=== PATIENT | female | born 1935 | race Asian ===

== ENCOUNTER 2017-07-20 05:08 | Inpatient (IN) | payer OTHER ==
[~2017-07-20] VITALS: Ht 149.9 cm; Wt 34.9 kg
[~2017-07-20 05:08] MED LIST: ALENDRONATE SOD70 M2 PO; AMLODIPINE BESYL5 M1 PO; BACO TOP; CALCITRIOL0.25 MCG PO; CARL PO; CIPRO500 MG PO; COL100 PO; FER300 PO; HIBICLENS118 ML TOP; IPRATROPIUM BROM3 M2 HHN; LAC PO; MEGESTROL AC40 MG/ML PO; MYL80 CH; NOR5 PO; PEP20 PO; PRI20 PO; PRO10I SQ; PROT40I IV; ROC25 PO; TYL325 PO; VITC PO; ZANTAC 150150 MG PO; ZANTAC 300300 MG PO; ZOFI IV; ZOFRAN4 MG PO
--- NOTE | 2017-07-20 05:31 | NUR ---
PT PRESENT TO THE ER TODAY FOR CHEST PAIN THAT STARTED YESTERDAY. PT STATES SHE WAS SITTING WHEN PAIN STARTED. PT STATES CHEST PAIN IS 9/10 AND DESCRIBED PRESSURE. PT DENIES ANY SOB. LUNGS CLEAR BILATERALY. RESPIRATIONS EVEN AND UNLABORED. PT DENIES ANY N/V. PT DENIES ANY OTHER SYMPTOMS. VITAL SIGNS STABLE. NO ACUTE DISTRESS NOTED. PT PLACED ON CAKE FROSTER. MSE COMPLETED BY DR. ROBIN.
--- NOTE | 2017-07-20 05:43 | NUR ---
LAB AT BEDSIDE FOR MSE.
[2017-07-20 05:58] LABS: BASOPHIL % 0.6 % (0-2); PLATELET COUNT 140 x10^3mcL (130-400); RED CELL DISTRIBUTION WIDTH 13.7 % (11.5-14.5)
--- NOTE | 2017-07-20 06:00 | NUR ---
RADIOLOGY AT BEDSIDE FOR CHEST X-RAY
[2017-07-20 06:04] LABS: CALCIUM 8.8 mg/dL (8.5-10.1); CARBON DIOXIDE 23.4 mmol/L (21-32); CHLORIDE SERUM 108 mmol/L (98-107); CREATININE SERUM 3.6 mg/dL (0.6-1.0); GLUCOSE SERUM 94 mg/dL (74-106); POTASSIUM SERUM 4.7 mmol/L (3.5-5.1); SODIUM SERUM 142 mmol/L (136-145)
[2017-07-20 06:09] LABS: ALBUMIN 4.1 g/dL (3.4-5.0); ALKALINE PHOSPHATASE 117 U/L (46-116); ALT/SGPT 36 U/L (14-59); AST/SGOT 30 U/L (15-37); BILIRUBIN TOTAL 0.34 mg/dL (0.20-1.00); LIPASE 688 IU/L (73-393); TOTAL PROTEIN, SERUM 7.8 g/dL (6.4-8.2)
[2017-07-20] MEDS ORDERED: LISINOPRIL2.5 MG PO (06:37)
[2017-07-20] MEDS ORDERED: REM15 PO (06:37)
--- NOTE | 2017-07-20 06:55 | NUR ---
PT APPEARS TO BE RESTING COMFORTABLY. PT STATES HER PAIN IS 9/10. RESPIRATIONS EVEN AND UNLABORED. VITAL SIGNS STABLE. NO ACUTE DISTRESS NOTED.
--- NOTE | 2017-07-20 07:00 | NUR ---
RECEIVED REPORT FROM INFORMATION TECHNOLOGY ADVISOR NURSE KORY. US AT BEDSIDE FOR EVALUATION.
--- NOTE | 2017-07-20 07:05 | NUR ---
REPORT CALLED TO BARB ON MED/TELE.
[2017-07-20 07:14] LABS: CHOLESTEROL/HDL RATIO 1.9; MAGNESIUM 2.5 mg/dL (1.8-2.4); PHOSPHOROUS 5.2 mg/dL (2.5-4.9)
[2017-07-20 07:23] LABS: T3 TOTAL 0.78 ng/mL
[2017-07-20 07:24] LABS: FREE T4 1.01 ng/dL (0.76-1.46); FREE THYROXINE INDEX 3.2 ug/dL (1.4-4.5); T4(THYROXINE) 9.6 ug/dL (4.7-13.3)
[2017-07-20 08:00] LABS: UA SPECIFIC GRAVITY <=1.005 (1.005-1.035); microscopic required? YES; urine erythrocyte 1+ (NEGATIVE)
--- NOTE | 2017-07-20 08:15 | NUR ---
RECEIVED PATIENT ALERT AND ORIENTED TIMES FOUR. IF ITNACT AND STARTED ON D5NS ORERED. HALLE HAS BEEN WITH PREVIOUS ADMISSION FOR PANCREATTITIS AND APPEARS SHE HAS THE SAME ISSUE WITH KIM AT 204 AND LIPASE AT 658. PATIENTHAS NTOED BLOOD AND PROTIEN IN THE URINE AND WITH H AND H OF 10.7/53. PER THE PATIENT SHE WAS A DILALYSIS PATIENT BUT THE SHUNT TO THE CHEST WAS REMOVED AND SHE HAD IMPROVEMENT ON THE KIDNEY FUNCTION SINCE THAT TIME. SHE HAS HAD ONE KIDNEY REM[facility] AND HAS HAD CATARACT SURGERY TO [facility] IN 2003. HE HAS A HISTORY OF GERD, HYPOTYROID, HTN, DEPRESSION AND ASTHMA. SHE WAS A SMOKER BUT QUIT 2 YEARS AGO. 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 [facility] RECEIVED FENTANYL, ZOFRAN, PEPCID. US OF THE GALLBLADDER AND IS NEGATIVE AT THIS TIME. WILL CONTINUE TO MONITOR AND WAS SEEN BY THE MACHINE ENGRAVER AND PLAN OF CARE DISCUSSED. PATIENT IS NPO INDICATED.
[2017-07-20 08:42] VITALS: BP 144/67
--- NOTE | 2017-07-20 09:30 | NUR ---
GAVE HER MEDICATIONS WITH WATER INDICATED.
[2017-07-20 09:50] VITALS: BP 134/67
--- NOTE | 2017-07-20 11:30 | NUR ---
VITALS AT THIS TIME AT 97.9, 144/67, 89 MAP, 97% ON ROOM AIR. AND 18 RESPIRATIONS.
--- NOTE | 2017-07-20 11:32 | NUR ---
BACK FROM CT AND AWAITING RESULTS OF SCAN AT THIS TIME. TOLERATED WELL.
[2017-07-20 12:58] VITALS: BP 116/56
--- NOTE | 2017-07-20 14:01 | NUR ---
PAGED RECREATION THERAPY TEACHER DUE TO PATIENT FREQUENT REQUEST FOR A DIET. AWAITING ANSWER AT THIS TIME. PATIENT IS HAVING A TROPONIN DRAWN AND ULTRASOUND AT THIS TIME.
--- NOTE | 2017-07-20 15:26 | NUR ---
GAVE INFLUENZA VACINE ORDERED TO THE LEFT UPPER ARM WITH A 22/ONE INCH NEEDLE. TOLERATED WELL. WILL MONITOR SITE INDICATED.
--- NOTE | 2017-07-20 16:20 | NUR ---
TOLERATED DIET OF LIQUIDS AND NO NAUSEA NOTED.
[2017-07-20 17:17] VITALS: BP 131/67
--- NOTE | 2017-07-20 17:34 | NUR ---
VALORIE DENIES CHEST PAIN AT THIS TIME. SHE HAS BEEN OOB AND AMBULATING TO AND FROM THE RESTROOM. SHE HAS BEEN SEEN BY DR WILLIAM AND SHE IN NO ACUTE DISTRESS AT THIS TIME.
--- NOTE | 2017-07-20 19:30 | NUR ---
PT ALERT/ORIENTED X4. NO C/O PAIN. TELE # 14, SR, HR; 64. PT REMAINS IN CONTACT ISOLATION. PT ASSESSED; SEE NSG FLOWSHEET. SAFETY REINFORCED; SEE EDUCAT SHEET. WILL CONTINUE TO MONITOR.
[2017-07-20 21:17] VITALS: BP 108/56
--- NOTE | 2017-07-20 22:30 | NUR ---
PT SLEEPING, AROUSES EASILY. NO C/O PAIN. WILL CONTINUE TO MONITOR.
--- NOTE | 2017-07-21 01:10 | NUR ---
PT SLEEPING. NO DISTRESS NOTED. BREATHING IS EVEN AND UNLABORED. WILL CONTINUE TO MONITOR.
--- NOTE | 2017-07-21 03:44 | NUR ---
PT AWAKE. NO C/O PAIN. WILL CONTINUE TO MONITOR.
--- NOTE | 2017-07-21 05:38 | NUR ---
PT SLEPT IN LONG INTERVALS THROUGHOUT THE NIGHT. NO DISTRESS NOTED. NO C/O PAIN. WILL CONTINUE TO MONITOR.
[2017-07-21 06:23] VITALS: BP 135/66
[2017-07-21 06:41] LABS: CARBON DIOXIDE 22.3 mmol/L (21-32); CHLORIDE SERUM 114 mmol/L (98-107); GLUCOSE SERUM 95 mg/dL (74-106); LIPASE 427 IU/L (73-393); PHOSPHOROUS 4.2 mg/dL (2.5-4.9); POTASSIUM SERUM 5.2 mmol/L (3.5-5.1); SODIUM SERUM 144 mmol/L (136-145); URIC ACID 8.7 mg/dL (2.6-6.0)
--- NOTE | 2017-07-21 07:15 | NUR ---
RECEIVED PT. IN BED A/A/O X3. NO SOB, NO N/V NOTED. DENIES ANY PAIN AT THIS TIME. D5NS RUNNING AT 75 CC/HR. VIA IV H/L AT L FA. PT. IS ON CONTACT ISOLATION (HX. MRSA NARES & ESBL E.COLI IN URINE). SCD TO BLE MAINTAINED. BED IN LOW POS., CALL LIGHT WITHIN REACH. SIDE RAILS UP X3.
[2017-07-21 07:21] LABS: BASOPHIL % 0.5 % (0-2); PLATELET COUNT 126 x10^3mcL (130-400); RED CELL DISTRIBUTION WIDTH 13.5 % (11.5-14.5)
--- NOTE | 2017-07-21 09:25 | NUR ---
DR. GASCA, THE RESIDENTS, CHARGE NURSE, AND ATTENDING NURSE AT BEDSIDE. CAREPLAN DISCUSSED WITH PT. ALL QUESTIONS ANSWERED.
[2017-07-21 09:54] VITALS: BP 145/66
[2017-07-21 13:36] VITALS: BP 127/65
[2017-07-21 14:02] LABS: IRON 57 ug/dL (50-170); TOTAL IRON BINDING CAPACITY 200 ug/dL (250-450)
--- NOTE | 2017-07-21 14:26 | NUR ---
Initial Nutrition Assessment Dx: Hyponatremia PMHx: Hypertension,Hypothyroidism,GERD ,ESRD, no longer on hemodialysis,Asthma And osteoporosis PSHx:right nephrectomy due to stones and cataract removal Labs: (07/21) K:5.2H, B, BUN:35H, Cr:3H, Ca:8L, Uric acid:8.7H, Lipase:427H, WBC:4.4L, H/H:9.4/29L (07/20) HDL:104H, Amylase:204H, Meds: Colace, D5 NS, Oscal with Vitamin D, Pepcid, Phoslo, Synthroid, Vitamin C, Zofran Diet:Clear liquid PO Intake: (07/20) D:50% (07/21) L:60% Ht: 59in, 4'11" Wt: 77#,34.927kg BMI:15.6kg/m2 (underweight) IBW: 98#,45kg %IBW: 79% UBW:77# per pt Age:81y/o female Food Allergies:NKFA Skin:intact Julio:21 Edema:None GI: active bowel sounds Last BM:07/20 Pt admitted with Acute acalculous pancreatitis and chest pain secondary to costochondritis vs GERD, rule out ACS. Per bed huddle this morning, pt is cleared by Dr. Gr and is awaiting nephrology consult. During visit observed pt laying in bed with no c/o N/V/D/C and no problems with chewing or swallowing. Pt reports to having a good appetite and has always been on the "skinnier" side. RD offered oral nutrition supplements but pt declined and said she is hungry and would probably eat 100% of her lunch. Problem with: N: No V: No D:No C:No Problems with: Chewing:pt with dentures but does not affect her chewing ability Swallowing: No Current appetite: Good Recent wt change:No %wt change:N/A Vitamin/Supplement use:Vitmain C Special diet at home:Regular Physical activity: No Education: pt declined nutrition education at this time. She was more concerned about what was going on with her medically vs. nutrionally. Estimated Nutritional Needs Based on ideal body weight 45kg Energy:6037-6049 kcal/d (30-35kcal/kg for renal non-dialysis) Protein: 27-36g/d (0.6-0.8g/kg for renal non-dialysis) Fluid: 1350-1575ml/d (1 ml/kcal) or per doctor Nutrition Diagnosis 1. Altered nutrition labs related to acute pancreatitis and ESRD as evidenced by elevated lipase: 688, Amylase:204, BUN:35 and Cr:3 Intervention 1. Recommend continue with clear liquid diet per doctor. 2. Recommend advance diet as tolerated to low phosphorus 40g protein diet to to ESRD not on HD. Monitor/Evaluate Goal: PO intake at least 75% of estimated needs and diet advancement Monitor: PO intake diet advancement,, Labs, GI function F/U in 2-3 days as high risk:07/23-
[2017-07-21 14:47] LABS: RED BLOOD CELLS 3.13 M/mm3 (4.10-5.10)
--- NOTE | 2017-07-21 17:06 | NUR ---
REMAINS IN STABLE CONDITION AT THIS TIME. NO ACUTE DISTRESS NOTED.
[2017-07-21 17:23] VITALS: BP 137/76
--- NOTE | 2017-07-21 19:30 | NUR ---
PT ALERT/ORIENTED X4. NO C/O PAIN. TELE #14, SR/SA, HR; 71. PT ASSESSED; SEE NSG FLOWSHEET. SAFETY REINFORCED; SEE EDUCAT SHEET. WILL CONTINUE TO MONITOR.
[2017-07-21 20:50] VITALS: BP 141/69
--- NOTE | 2017-07-21 22:30 | NUR ---
PT AWAKE. NO C/O PAIN. WILL CONTINUE TO MONITOR.
--- NOTE | 2017-07-22 01:30 | NUR ---
PT SLEEPING. NO DISTRESS NOTED. WILL CONTINUE TO MONITOR.
--- NOTE | 2017-07-22 03:00 | NUR ---
PT APPEARS TO BE CONFUSED AT THIS TIME. PT KEEPS ASKING WHAT THE IV TUBING IS FOR AND IF SHE COULD TAKE IT OUT. EDUCATED PT ON THE IV AND IV TUBING. WILL CONTINUE TO MONITOR. WILL NOTIFY DR CHAWLA OF THE ABOVE.
--- NOTE | 2017-07-22 03:44 | NUR ---
PT SLEEPING. NO DISTRESS NOTED. WILL CONTINUE TO MONITOR.
--- NOTE | 2017-07-22 04:51 | NUR ---
PT AWAKE. PT STATES WANTS THE TELE MONITOR OFF, STATES "IT'S TOO HEAVY". TOOK THE TELE MONITOR OUT OF THE HOSPITAL GOWN POCKET AND PLACED IT ON THE SIDE OF PT (TELE MONITOR REMAINS ON PT). PT ALSO STATING TO HAVE THE IV REMOVED, EDUCATED THE PT ON THE IMPORTANCE OF THE IV. WILL CONTINUE TO MONITOR FREQUENTLY. BED ALARM REMAINS ON.
[2017-07-22 06:07] VITALS: BP 149/69
--- NOTE | 2017-07-22 06:30 | NUR ---
PT DOES NOT APPEAR TO BE CONFUSED AT THIS TIME.WILL CONTINUE TO MONITOR. BED ALARM REMAINS ON.
[2017-07-22 07:01] LABS: BASOPHIL % 0.5 % (0-2)
[2017-07-22 07:12] LABS: PLATELET COUNT 118 x10^3mcL (130-400)
--- NOTE | 2017-07-22 07:31 | NUR ---
PT RECEIVED DURING CHANGE OF SHIFT, AWAKE/ALERT, REPORTS OF CONFUSION COAT TAILOR, TELE 14, DENIES CHEST PAIN, PULSES PRESENT, NO EDEMA NOTED, LUNGS CTA ON RA, BREATHING EVEN AND UNLABORED, DENIES SOB, BOWEL SOUNDS ACTIVE, ABLE TO VOID, PREVIOUSLY HD PT, BRP WITH ASSIST, GENERALIZED WEAKNESS, SKIN WARM/DRY/INTACT, DENIES PAIN, IV TO LFA INFUSING D5NS AT 75ML/HR, IV WNL, CALL LIGHT WITHIN REACH, CALM AND COOPERATIVE, CALL LIGHT WITHIN REACH, WILL CONTINUE TO MONITOR.
[2017-07-22 07:35] LABS: CALCIUM 8.1 mg/dL (8.5-10.1); CARBON DIOXIDE 22.4 mmol/L (21-32); CHLORIDE SERUM 114 mmol/L (98-107); CREATININE SERUM 2.7 mg/dL (0.6-1.0); GLUCOSE SERUM 87 mg/dL (74-106); MAGNESIUM 1.7 mg/dL (1.8-2.4); PHOSPHOROUS 3.4 mg/dL (2.5-4.9); POTASSIUM SERUM 4.6 mmol/L (3.5-5.1); SODIUM SERUM 145 mmol/L (136-145)
--- NOTE | 2017-07-22 08:20 | NUR ---
PT DENIES SOB, DENIES PAIN, STATES "I'VE BEEN URINATING EVERY HOUR", FAMILY MEMBER AT BEDSIDE, CALL LIGHT WITHIN REACH, WILL CONTINUE TO MONITOR.
--- NOTE | 2017-07-22 09:19 | NUR ---
PT IN RESTROOM, AUTO MACHINIST ASSISTING PT.
[2017-07-22 09:30] VITALS: BP 156/80
--- NOTE | 2017-07-22 09:55 | NUR ---
DR. GASCA AND RESIDENTS MAKING ROUNDS, PLAN OF CARE DISCUSSED.
--- NOTE | 2017-07-22 10:04 | NUR ---
PT DENIES SOB, DENIES PAIN, FAMILY MEMBER AT BEDSIDE, CALL LIGHT WITHIN REACH, WILL CONTINUE TO MONITOR.
--- NOTE | 2017-07-22 11:18 | NUR ---
PT DENIES SOB, DENIES PAIN, WALKED TO NURSES STATION REQUESTING FOR IV TO BE REMOVED, PT REMINDED THAT DR. GASCA STATED "IF YOU CAN TOLERATE THE FOOD TODAY, THEN VERY LIKELY WE CAN LET YOU GO TOMORROW.", CALL LIGHT WITHIN REACH, WILL CONTINUE TO MONITOR.
--- NOTE | 2017-07-22 12:30 | NUR ---
PT ASLEEP, NO INDICATION OF PAIN, BREATHING EVEN AND UNLABORED, CALL LIGHT WITHIN REACH, WILL CONTINUE TO MONITOR.
--- NOTE | 2017-07-22 13:23 | NUR ---
PT DENIES SOB, DENIES PAIN, PT AMBULATED TO STATION TO TALK TO PRIMARY RN, PT STATED HER PREFERRED PHARMACY WAS NEAR [facility]. AND [facility], PT ACCOMPANIED BACK TO BED BY MEDICAL STUDENT, CALL LIGHT WITHIN REACH, WILL CONTINUE TO MONITOR.
--- NOTE | 2017-07-22 14:18 | NUR ---
PT DENIES SOB, DENIES PAIN, CALL LIGHT WITHIN REACH, WILL CONTINUE TO MONITOR.
[2017-07-22 14:54] VITALS: BP 142/70
--- NOTE | 2017-07-22 15:32 | NUR ---
PT'S TELE DC'D PER 'S ORDERS, DENIES SOB, DENIES PAIN, CALL LIGHT WITHIN REACH, WILL CONTINUE TO MONITOR.
--- NOTE | 2017-07-22 16:32 | NUR ---
PT C/O "ACID REFLEX", DENIES SOB, DENIES PAIN, MEDICATED PER EMAR, CALL LIGHT WITHIN REACH, WILL CONTINUE TO MONITOR.
--- NOTE | 2017-07-22 17:24 | NUR ---
PT DENIES SOB, DENIES PAIN, CALL LIGHT WITHIN REACH, WILL CONTINUE TO MONITOR.
[2017-07-22 17:25] VITALS: BP 173/72
--- NOTE | 2017-07-22 18:25 | NUR ---
PT DENIES SOB, DENIES PAIN, ORGANIZING BELONGINGS IN ROOM, CALL LIGHT WITHIN REACH, WILL ENDORSE TO NEXT SHIFT.
--- NOTE | 2017-07-22 19:45 | NUR ---
PT A/O X4, BUT MAY HAVE EPISODES OF CONFUSION; TAGALOG SPEAKING. MED-SURG, NO TELE. PT DENIES CHEST PAIN. PULSES PALPABLE, NO EDEMA PRESENT. LUNG SOUNDS CTA, BREATHING ON RA, DENIES SOB. ABD SOFT AND NONDISTENDED, BOWEL SOUNDS ACTIVE, DENIES N/V. VOIDS ADEQUATELY, BRP WITH ASSIST. SKIN IS INTACT. DENIES PAIN AT THIS TIME. PT FOUND SALINE LOCK TO LFA, IV PATENT AND INTACT. BED IN LOWEST SETTING, SIDE RAILS UP X2, CALL LIGHT WITHIN REACH. WILL CONTINUE TO MONITOR.
[2017-07-22 21:08] VITALS: BP 146/70
--- NOTE | 2017-07-23 00:43 | NUR ---
PT AWAKE AT THIS TIME. BREATHING IS EVEN AND UNLABORED, NO RESP DISTRESS NOTED. PT DENIES PAIN. CALL LIGHT WITHIN REACH. WILL CONTINUE TO MONITOR.
--- NOTE | 2017-07-23 05:51 | NUR ---
PT WAS AWAKE FOR MOST OF THE NIGHT. BREATHING IS EVEN AND UNLABORED, NO RESP DISTRESS NOTED. PT DENIES PAIN AT THIS TIME. PT EXPRESSED CONCERN ABOUT HER LIVING SITUATION, BEKAH TRANSLATED AND EXPLAINED TO PT THAT A SALESFORCE CONSULTANT CAN LOOK INTO HER CASE, PT VERBALIZES UNDERSTANDING. BED IN LOWEST SETTING, CALL LIGHT WITHIN REACH. WILL ENDORSE CARE TO AM NURSE.
[2017-07-23 06:21] VITALS: BP 157/79
--- NOTE | 2017-07-23 07:10 | NUR ---
RECEIVED Pt. AAOX4, RESPIRATIONS EVEN AND UNLABORED RA DENIES PAIN/DISCOMFORT AT THIS TIME. NO DISTRESS NOTED ON CONTACT PRECAUTIONS. MEDSURG Pt. DENIES CHEST PAIN/PRESSURE. IV SALINE LOCKED AT LFA. BED LOW/LOCKED. CALL LIGHT IN REACH. WILL CONTINUE TO MONITOR.
--- NOTE | 2017-07-23 07:17 | NUR ---
PT AWAKE AT THIS TIME, NO RESP DISTRESS NOTED. PT DENIES PAIN. SALINE LOCK TO LFA, PATENT AND INTACT. PT REFUSES IV FLUIDS. BED IN LOWEST SETTING, CALL LIGHT WITHIN REACH. CARE ENDORSED TO PVAAN.
[2017-07-23 07:42] LABS: CALCIUM 9.1 mg/dL (8.5-10.1); CARBON DIOXIDE 19.8 mmol/L (21-32); CHLORIDE SERUM 108 mmol/L (98-107); CREATININE SERUM 2.9 mg/dL (0.6-1.0); GLUCOSE SERUM 87 mg/dL (74-106); MAGNESIUM 1.9 mg/dL (1.8-2.4); PHOSPHOROUS 3.2 mg/dL (2.5-4.9); POTASSIUM SERUM 4.7 mmol/L (3.5-5.1); SODIUM SERUM 140 mmol/L (136-145)
--- NOTE | 2017-07-23 08:32 | NUR ---
MADE ROUNDS WITH DR. FARRELL AND MEDICINE TEAM, Pt. POSSIBLE DISCHARGE TODAY AND AGREED WITH PLAN OF CARE.
[2017-07-23 08:58] VITALS: BP 157/79
[2017-07-23 09:04] LABS: BASOPHIL % 0.4 % (0-2); PLATELET COUNT 132 x10^3mcL (130-400); RED CELL DISTRIBUTION WIDTH 13.7 % (11.5-14.5)
[2017-07-23 09:48] VITALS: BP 142/61
--- NOTE | 2017-07-23 12:17 | NUR ---
Pt. AAOX4 RESPIRATIONS EVEN AND UNLABORED DENIES PAIN/DISCOMFORT. DENIES CHEST PAIN/PRESSURE AT THIS TIME. ALL DISCHARGE INSTRUCTIONS EXPLAINED TO Pt. AND VERBALIZED UNDERSTANDING. IV LFA REMOVED WITH CATH INTACT. Pt. INSTRUCTED TO FOLLOW UP WITH PCP AND VERBALIZED UNDERSTANDING. Pt. LEFT WITH ALL BELONGINGS ACCOMPANIED BY REPRESENTATIVE GOVERNMENT RELATIONS AND Pt's SON IN LAW.
== END 2017-07-23 12:20 | disposition home or self-care (01) | DRG 438 ==
LOC: ED 05:08 → DU 06:31 → MU 07-22 15:16
PROVIDERS: Emergency Medicine; ADMIT Family Medicine Sports Medicine
DX: K85.90 Acute pancreatitis without necrosis or infection, unspecified (principal); N17.0 Acute kidney failure with tubular necrosis; Z68.1 Body mass index [BMI] 19.9 or less, adult; N18.4 Chronic kidney disease, stage 4 (severe); I12.9 Hypertensive chronic kidney disease with stage 1 through stage 4 chronic kidney disease, or unspecified chronic kidney disease; M94.0 Chondrocostal junction syndrome [Tietze]; K21.9 Gastro-esophageal reflux disease without esophagitis; R80.9 Proteinuria, unspecified; D69.6 Thrombocytopenia, unspecified; E87.5 Hyperkalemia; R63.6 Underweight; E83.41 Hypermagnesemia; E83.39 Other disorders of phosphorus metabolism; J45.909 Unspecified asthma, uncomplicated; E03.9 Hypothyroidism, unspecified; M81.0 Age-related osteoporosis without current pathological fracture; R31.9 Hematuria, unspecified; Z90.5 Acquired absence of kidney; Z87.11 Personal history of peptic ulcer disease; Z87.891 Personal history of nicotine dependence; D63.1 Anemia in chronic kidney disease
CPT/HCPCS: 82962; 83880; 84439; 90658; J0885-EC; J2405; J3010; J3490; J7042; Q0092

== ENCOUNTER 2018-09-01 10:24 | Emergency (ER) | payer OTHER ==
[~2018-09-01] VITALS: Ht 149.9 cm; Wt 33.8 kg
[~2018-09-01 10:24] MED LIST changes: +LISINOPRIL2.5 MG PO; +REM15 PO
[2018-09-01 10:31] VITALS: Ht 149.9 cm; Wt 33.8 kg
[2018-09-01 10:45] VITALS: BP 188/92
[2018-09-01 10:51] LABS: BASOPHIL % 0.7 % (0-2); PLATELET COUNT 153 x10^3mcL (130-400)
[2018-09-01] MEDS ORDERED: LEVOTHYROXIN0.025 M2 (10:51)
[2018-09-01 10:54] LABS: RED CELL DISTRIBUTION WIDTH 16.2 % (11.5-14.5)
[2018-09-01 11:11] LABS: ALBUMIN 3.3 g/dL (3.4-5.0); ALKALINE PHOSPHATASE 157 U/L (46-116); ALT/SGPT 29 U/L (14-59); AST/SGOT 33 U/L (15-37); BILIRUBIN TOTAL 0.2 mg/dL (0.20-1.00); CALCIUM 8.1 mg/dL (8.5-10.1); CARBON DIOXIDE 20.8 mmol/L (21-32); CHLORIDE SERUM 106 mmol/L (98-107); GLUCOSE SERUM 93 mg/dL (74-106); POTASSIUM SERUM 4.4 mmol/L (3.5-5.1); SODIUM SERUM 139 mmol/L (136-145); TOTAL PROTEIN, SERUM 7.2 g/dL (6.4-8.2)
[2018-09-01 11:13] LABS: CREATININE SERUM 4.5 mg/dL (0.6-1.0)
[2018-09-01 11:30] LABS: microscopic required? YES; urine erythrocyte 1+ (NEGATIVE)
== END 2018-09-01 11:49 | disposition home or self-care (01) ==
LOC: ED 10:24
PROVIDERS: Emergency Medicine
DX: I12.0 Hypertensive chronic kidney disease with stage 5 chronic kidney disease or end stage renal disease (principal); N18.6 End stage renal disease; Z90.5 Acquired absence of kidney
CPT/HCPCS: 36415

== ENCOUNTER 2019-08-17 08:09 | Inpatient (IN) | payer OTHER ==
[~2019-08-17] VITALS: Ht 149.9 cm; Wt 29.7 kg
[~2019-08-17 08:09] MED LIST changes: +LEVOTHYROXIN0.025 M2 PO
[2019-08-17 08:20] VITALS: Ht 149.9 cm; Wt 29.7 kg
[2019-08-17 09:19] LABS: BASOPHIL % 0.1 % (0-2)
[2019-08-17 09:23] LABS: PLATELET COUNT 117 x10^3mcL (130-400); RED CELL DISTRIBUTION WIDTH 15.3 % (11.5-14.5)
[2019-08-17 09:29] LABS: ALKALINE PHOSPHATASE 134 U/L (46-116); ALT/SGPT 39 U/L (14-59); AST/SGOT 22 U/L (15-37); BILIRUBIN TOTAL 0.38 mg/dL (0.20-1.00); CALCIUM 7.4 mg/dL (8.5-10.1); CHLORIDE SERUM 102 mmol/L (98-107); GLUCOSE SERUM 123 mg/dL (74-106); POTASSIUM SERUM 4.8 mmol/L (3.5-5.1); SODIUM SERUM 134 mmol/L (136-145)
[2019-08-17 09:31] LABS: ALBUMIN 3.2 g/dL (3.4-5.0); CREATININE SERUM 7.3 mg/dL (0.6-1.0)
[2019-08-17] MEDS ORDERED: NOR5 PO (10:20)
[2019-08-17 12:12] LABS: MAGNESIUM 1.9 mg/dL (1.8-2.4); PHOSPHOROUS 5.1 mg/dL (2.5-4.9)
[2019-08-17 12:21] LABS: CHOLESTEROL/HDL RATIO 1.6
[2019-08-17 13:13] LABS: microscopic required? YES; urine erythrocyte 2+ (NEGATIVE)
[2019-08-17 13:21] LABS: FREE T4 1.09 ng/dL (0.76-1.46); FREE THYROXINE INDEX 2.7 ug/dL (1.4-4.5); T4(THYROXINE) 8.1 ug/dL (4.7-13.3)
[2019-08-17 13:44] LABS: T3 TOTAL 0.38 ng/mL
[2019-08-17 16:30] VITALS: BP 191/79
[2019-08-17 17:30] VITALS: BP 168/67
[2019-08-17 18:45] VITALS: BP 157/69
[2019-08-17 21:02] VITALS: BP 147/55
[2019-08-18 05:32] VITALS: BP 157/66
[2019-08-18 06:26] VITALS: BP 157/66
[2019-08-18 07:04] LABS: BASOPHIL % 0.1 % (0-2)
[2019-08-18 07:17] LABS: CALCIUM 6.9 mg/dL (8.5-10.1); CARBON DIOXIDE 15.8 mmol/L (21-32); CHLORIDE SERUM 107 mmol/L (98-107); GLUCOSE SERUM 111 mg/dL (74-106); SODIUM SERUM 140 mmol/L (136-145)
[2019-08-18 07:21] LABS: PLATELET COUNT 118 x10^3mcL (130-400); RED CELL DISTRIBUTION WIDTH 15.7 % (11.5-14.5)
[2019-08-18 07:26] LABS: CREATININE SERUM 7.5 mg/dL (0.6-1.0)
[2019-08-18 09:49] VITALS: BP 157/61
[2019-08-18 14:33] VITALS: BP 129/52
[2019-08-18 16:52] VITALS: BP 138/61
[2019-08-18 21:12] VITALS: BP 162/69
[2019-08-19 05:16] VITALS: BP 155/67
[2019-08-19 08:20] VITALS: BP 146/55
[2019-08-19 12:09] VITALS: BP 143/60
[2019-08-19 16:40] VITALS: BP 142/59
[2019-08-19 20:44] VITALS: BP 145/59
[2019-08-20 05:13] VITALS: BP 147/60
[2019-08-20 08:26] LABS: PLATELET COUNT 172 x10^3mcL (130-400)
[2019-08-20 08:36] LABS: RED CELL DISTRIBUTION WIDTH 15.2 % (11.5-14.5)
[2019-08-20 08:45] VITALS: BP 141/64
[2019-08-20 08:49] LABS: CALCIUM 6.7 mg/dL (8.5-10.1); CARBON DIOXIDE 17.5 mmol/L (21-32); CHLORIDE SERUM 107 mmol/L (98-107); GLUCOSE SERUM 135 mg/dL (74-106); MAGNESIUM 1.9 mg/dL (1.8-2.4); SODIUM SERUM 142 mmol/L (136-145)
[2019-08-20 09:05] LABS: CREATININE SERUM 8.4 mg/dL (0.6-1.0)
[2019-08-20 11:15] LABS: BAND NEUTROPHIL 1 % (0-10); BASOPHIL 0 % (0-2); MONOCYTE 2 % (0-7); SEGMENTED NEUTROPHILS 94 % (37-75)
[2019-08-20 11:16] LABS: PLATELET MORPHOLOGY PLATELETS DECREASED; rbc morphology (normal/abnorm) ABNORMAL (NORMAL)
[2019-08-20 13:43] VITALS: BP 118/60
[2019-08-20 17:48] VITALS: BP 119/81
[2019-08-20 20:29] VITALS: BP 131/65
[2019-08-21] VITALS (9 sets, daily range): BP systolic 123–152; BP diastolic 57–85
[2019-08-21 07:13] LABS: PLATELET COUNT 180 x10^3mcL (130-400)
[2019-08-21 07:35] LABS: RED CELL DISTRIBUTION WIDTH 15.6 % (11.5-14.5)
[2019-08-21 07:50] LABS: CALCIUM 7.3 mg/dL (8.5-10.1); CARBON DIOXIDE 19.2 mmol/L (21-32); CHLORIDE SERUM 105 mmol/L (98-107); GLUCOSE SERUM 101 mg/dL (74-106); POTASSIUM SERUM 4.9 mmol/L (3.5-5.1); SODIUM SERUM 140 mmol/L (136-145)
[2019-08-21 07:51] LABS: CREATININE SERUM 8.6 mg/dL (0.6-1.0)
[2019-08-21 11:33] LABS: BAND NEUTROPHIL 13 % (0-10); BASOPHIL 0 % (0-2); MONOCYTE 3 % (0-7); SEGMENTED NEUTROPHILS 76 % (37-75)
[2019-08-21 11:35] LABS: PLATELET MORPHOLOGY PLATELETS NORMAL; rbc morphology (normal/abnorm) ABNORMAL (NORMAL)
[2019-08-21 12:07] LABS: PLATELET COUNT 174 x10^3mcL (130-400)
[2019-08-21 12:17] LABS: BASOPHIL % 0 % (0-2); RED CELL DISTRIBUTION WIDTH 15.8 % (11.5-14.5)
[2019-08-21 12:23] LABS: rbc morphology (normal/abnorm) ABNORMAL (NORMAL)
[2019-08-22 05:15] VITALS: BP 146/72
[2019-08-22 07:33] LABS: PLATELET COUNT 181 x10^3mcL (130-400)
[2019-08-22 07:38] LABS: RED CELL DISTRIBUTION WIDTH 15.5 % (11.5-14.5)
[2019-08-22 07:39] LABS: CALCIUM 6.7 mg/dL (8.5-10.1); CARBON DIOXIDE 20.4 mmol/L (21-32); CHLORIDE SERUM 104 mmol/L (98-107); GLUCOSE SERUM 88 mg/dL (74-106); POTASSIUM SERUM 4.4 mmol/L (3.5-5.1); SODIUM SERUM 140 mmol/L (136-145)
[2019-08-22 07:44] LABS: CREATININE SERUM 8.3 mg/dL (0.6-1.0)
[2019-08-22 09:23] VITALS: BP 144/67
[2019-08-22] MEDS ORDERED: ROC1I IV (10:41)
[2019-08-22] MEDS ORDERED: AZITHROMYCIN IV (10:43)
[2019-08-22 10:47] LABS: BAND NEUTROPHIL 14 % (0-10); BASOPHIL 0 % (0-2); MONOCYTE 2 % (0-7); MYELOCYTE 1 % (0-2); SEGMENTED NEUTROPHILS 75 % (37-75); rbc morphology (normal/abnorm) NORMAL (NORMAL)
[2019-08-22 10:48] LABS: PLATELET MORPHOLOGY PLATELETS NORMAL
[2019-08-22 12:35] VITALS: BP 147/62
[2019-08-22 16:16] VITALS: BP 127/65
[2019-08-22 17:09] VITALS: BP 127/65
== END 2019-08-22 19:10 | DRG 177 ==
LOC: ED 08:09 → DU 11:25 → MU 08-22 11:13
PROVIDERS: Emergency Medicine; ADMIT Internal Medicine
PROC: 30233N1 Transfusion of Nonautologous Red Blood Cells into Peripheral Vein, Percutaneous Approach (ICD-10-PCS; principal; 2019-08-21)
DX: J69.0 Pneumonitis due to inhalation of food and vomit (principal); J96.00 Acute respiratory failure, unspecified whether with hypoxia or hypercapnia; E87.2 Acidosis; J44.1 Chronic obstructive pulmonary disease with (acute) exacerbation; I12.0 Hypertensive chronic kidney disease with stage 5 chronic kidney disease or end stage renal disease; N18.5 Chronic kidney disease, stage 5; Z68.1 Body mass index [BMI] 19.9 or less, adult; R64 Cachexia; D89.9 Disorder involving the immune mechanism, unspecified; E03.9 Hypothyroidism, unspecified; D63.1 Anemia in chronic kidney disease; E83.39 Other disorders of phosphorus metabolism; K21.9 Gastro-esophageal reflux disease without esophagitis; Z90.5 Acquired absence of kidney
CPT/HCPCS: 36600; 83880; 84439; 90658; 94150; 97116-GP; 97530-GP; G0378; J0456; J0696; J0885-EC; J2543; J7030; J7040; J7060; J7620; P9016; Q0092

== ENCOUNTER 2019-08-30 22:20 | Inpatient (IN) | payer OTHER ==
[~2019-08-30] VITALS: Ht 149.9 cm; Wt 31.5 kg
[~2019-08-30 22:20] MED LIST changes: +AZITHROMYCIN IV; +ROC1I IV
[2019-08-30 22:58] VITALS: Ht 149.9 cm; Wt 31.5 kg
--- NOTE | 2019-08-30 22:58 | NUR ---
PT BIB BLS [facility], PT WAS PICKED UP FROM [facility] FOR ABNORMAL LABS. PER MEDIC FACILTIY STATED SHE IS "USUALLY MORE TALKATIVE AN HAS BEEN ALTERED THE LAST 2 DAYS." PT HAS HISTORY OF KIDNEY FAILURE, COPD, HTN, RESPIRATORY FAILURE, GERD, HYPOTHYRODISM. PT REPORTS SHE DOES NOT DO DIALYSIS ANYMORE. PT IS AAOX4, PT WANTS TO CLOSE HER EYES BUT FOLLOWS COMMANDS WHEN ASKED TO OPEN THEM, PT ANSWERS QEUSTIONS IN YES OR NO ANSWERS. PT DENIES ANY PAIN, NAUSEA, DIZZINESS, CHEST PAIN. PT STATES "I AM COLD." PT GOWNED AND PLACED ON FULL CM, NSR, GIVEN 2 WARM BLANKETS, LUNG STRICKLAND ALL CLEAR TO AUSCULTATION, PT IN 5L OXYGEN VIA NC, SPO2 @98%, AT THIS TIME, NO DISTRESS NOTED, RESP E/U, ECHYMOSSIS NOTED TO BILATERAL UPPER EXTRMEITIES, AND BLANCHABLE SKIN NOTED TO SACRUM, SKIN INTACT, PINK WARM AND DRY. AWAIING MSE BY , WILL CONT TO MONITOR.
[2019-08-30] MEDS ORDERED: PROCRIT10000 UNIT IJ (23:17)
--- NOTE | 2019-08-30 23:33 | NUR ---
PCXR IN PROGRESS AT BEDSIDE
[2019-08-31 00:05] LABS: BASOPHIL % 0.1 % (0-2); PLATELET COUNT 206 x10^3mcL (130-400)
[2019-08-31 00:17] LABS: ALKALINE PHOSPHATASE 181 U/L (46-116); ALT/SGPT 51 U/L (14-59); AST/SGOT 37 U/L (15-37); BILIRUBIN TOTAL 0.3 mg/dL (0.20-1.00); CARBON DIOXIDE 18.1 mmol/L (21-32); CHLORIDE SERUM 112 mmol/L (98-107); GLUCOSE SERUM 152 mg/dL (74-106); SODIUM SERUM 149 mmol/L (136-145); TOTAL PROTEIN, SERUM 6.7 g/dL (6.4-8.2)
[2019-08-31 00:21] LABS: ALBUMIN 2.8 g/dL (3.4-5.0)
[2019-08-31 00:22] LABS: CREATININE SERUM 8.8 mg/dL (0.6-1.0); POTASSIUM SERUM 6.5 mmol/L (3.5-5.1)
--- NOTE | 2019-08-31 00:45 | NUR ---
BREATHING TREATMENT IN PROGRESS BY RT BARAJAS.
--- NOTE | 2019-08-31 01:48 | NUR ---
MEDICATED PT PER MD ORDERS, SEE EMAR. PT VERBALIZED UNDERSTANDING OF MEDICATION TEACHING.
[2019-08-31 02:03] LABS: MAGNESIUM 2.3 mg/dL (1.8-2.4)
--- NOTE | 2019-08-31 02:10 | NUR ---
REPORT GIVEN TO CORA ON TELE UNIT WHO WILL ASSUME FURTHER CARE OF THIS PATIENT.
--- NOTE | 2019-08-31 02:30 | NUR ---
PT TAKEN OFF THE FLOOR TO TELE VIA [employer] BY CONNIE RUST AND MYSELF.
--- NOTE | 2019-08-31 02:40 | NUR ---
PT ARRIVED FROM ER ACCOMPANIED BY NURSE VIA GURNEY. PT IS ORIENTED TO PERSON, PLACE, TIME AND SITUATION. PT IS DROWSY AND SLOW TO RESPOND, PT ABLE TO FOLLOW SIMPLE COMMANDS. CURRENT VITAL SINGS ARE 133/58, MAP: 83, HR: 98.9, O2: 100 ON 4L NC, RR: 16. RESPIRATIONS EVEN AND UNLABORED. PT LOOKS TO BE IN NO ACUTE DISTRESS AT THIS TIME AND DENIES ANY PAIN. BLANCHABLE REDNESS NOTED SACRAL, PICTURE IN CHART. ECCHYMOSIS NOTED TO BUE. TELE MONITOR 11 PRESENT SHOWING NSR WITH PEAKED T WAVES. LUNG SOUNDS CLEAR BILATERALLY, PULSES PALPABLE, NO EDEMA PRESENT. BOWEL SOUNDS ACTIVE X 4 QUADRANTS, PT HAD SMALL BM SMEAR ON DIAPER WHEN ARRIVED, CLEANED UP PT AND REMOVED DIAPER. PT REFUSED MRSA SCREENING, EDUCATED PT UPON REFUSAL. ORIENTED PT TO UNIT AND ROOM, CALL LIGHT WITHIN REACH. WILL CONTINUE TO MONITOR.
[2019-08-31 02:47] LABS: CHOLESTEROL/HDL RATIO 2.4
[2019-08-31 02:49] LABS: PHOSPHOROUS 11.9 mg/dL (2.5-4.9)
[2019-08-31 03:22] VITALS: BP 133/58
--- NOTE | 2019-08-31 04:50 | NUR ---
PT IS LAYING DOWN IN BED WITH HOB UP WITH EYES CLOSED RESTING. PT LOOKS TO BE IN NO ACUTE DISTRESS AT THIS TIME. RESPIRATIONS EVEN AND UNLABORED ON 4L NC. BED IN LOWEST POSITION, CALL LIGHT WITHIN REACH. WILL CONTINUE TO MONITOR.
--- NOTE | 2019-08-31 05:22 | NUR ---
RACEMIC BREATHING TREATMENT FINISHED, PT REPORTS IMPROVED BREATHING, NO STRIDOR NOTED AT THIS TIME, RESP E/U, NO DISTRESS NOTED. WILL CONT TO MONITOR.
[2019-08-31 05:25] VITALS: BP 135/55
[2019-08-31 06:00] VITALS: BP 135/55
[2019-08-31 06:36] LABS: BASOPHIL % 0.1 % (0-2); PLATELET COUNT 189 x10^3mcL (130-400)
--- NOTE | 2019-08-31 06:53 | NUR ---
PT IS LAYING DOWN IN BED WITH HOB UP. AUDIBLE WHEEZING HEARD, RESPIRATIONS EVEN ON 3L NC. PT LOOKS TO BE IN NO ACUTE DISTRESS AT THIS TIME. IV SITE PATENT WITH NO SIGNS OF ERYTHEMA OR SWELLING. CALL LIGHT WITHIN REACH. WILL ENDORSE TO ONCOMING SHIFT.
--- NOTE | 2019-08-31 07:05 | NUR ---
WILL BE CARING FOR PT UNTIL DAY SHIFT NURSE COMES TO TAKE OVER CARE
[2019-08-31 07:29] LABS: RED CELL DISTRIBUTION WIDTH 18.6 % (11.5-14.5)
[2019-08-31 07:38] LABS: CALCIUM 6.1 mg/dL (8.5-10.1); CARBON DIOXIDE 17.2 mmol/L (21-32); CHLORIDE SERUM 114 mmol/L (98-107); GLUCOSE SERUM 104 mg/dL (74-106); SODIUM SERUM 148 mmol/L (136-145)
--- NOTE | 2019-08-31 07:50 | NUR ---
PAGED DR. ROBLES ABOUT CRITICAL LAB RESULTS.
[2019-08-31 07:53] LABS: CREATININE SERUM 8.9 mg/dL (0.6-1.0)
--- NOTE | 2019-08-31 07:55 | NUR ---
BREAKFAST TRAY PRESENT. ATTEMPTED TO WAKE UP PT AND PT REFUSED TO OPEN EYES OR RESPOND. CONTINUED TO TRY TO AROUSE, RAISED HOB TO 90 DEGREE AND PT CONTINUED TO REFUSED. RECHECKED BLOOD SUGAR AND IS 93, VITAL SIGNS STABLE WITH O2 SAT AT 97% ON 4L NC. ADDITIONAL NURSE CAME IN AND PT STARTED SAID, "THAT NURSE TALKS TOO MUCH" BUT CONTINUED TO KEEP EYES CLOSED. PT LOOKS TO BE IN NO ACUTE DISTRESS AT THIS TIME. WILL CONTINUE TO MONITOR.
[2019-08-31 08:36] VITALS: BP 132/57
[2019-08-31 08:58] LABS: MAGNESIUM 2.4 mg/dL (1.8-2.4)
--- NOTE | 2019-08-31 09:40 | NUR ---
ECHOCARDIOGRAM PENDING-HAVING BREAKFAST
--- NOTE | 2019-08-31 09:50 | NUR ---
PT FAMILY MEMBERS AT BEDSIDE. FAMILY MEMBERS ASSISTED PT WITH EATING AND STATED PT HAS A DECREASED APPETITE SINCE THURSDAY BUT WERE ABLE TO ASSIST PT WITH EATING. PT HAD A BOWEL MOVMENT. CLEANED UP PT, APPLIED Z GUARD TO LESLIE AREA AND APPLIED OPTIFOAM TO SACRAL. MADE PT COMFORTABLE IN BED. WILL CONITNUE TO MONITOR.
[2019-08-31 10:10] LABS: PHOSPHOROUS 11.8 mg/dL (2.5-4.9)
--- NOTE | 2019-08-31 10:45 | NUR ---
ENDORSE TO NURSE ALMA
--- NOTE | 2019-08-31 10:46 | NUR ---
RECEIVED PT FROM TELLY SHEPHERD. PT RESTING IN BED W/ BOTH EYES CLOSED. AROUSABLE TO TACTILE STIMULI. NONCOMPLIANT AT TIMES. SPEECH CLEAR. FACE SYMMETRICAL. NO S/S OF ACUTE DISTRESS. NO SOB ON 3LNC. NO S/S OF PAIN. NO N/V. NO CHEST PAIN. NSR ON TELE. IV WNL TO SHAKIRA, SALINE LOCKED. FALL PREC IN PLACE. OPTIFOAM IN PLACE TO SACRAL COCCYX. REPOSITIONS INDEPENDENTLY. BED ALARM ON. BED IN LOW POSITION. CALL LIGHT WITHIN REACH. INSTRUCTED TO USE CALL LIGHT TO CALL FOR ASSISTANCE PRN. WILL CONT. TO MONITOR.
--- NOTE | 2019-08-31 11:58 | NUR ---
TROP 0.130 TRENDING DOWN. WILL NOTIFY PHYSICIAN. NO C/O CHEST PAIN. WILL MONITOR.
--- NOTE | 2019-08-31 12:58 | NUR ---
PT HAD LOOSE BROWN BM X1. PERICARE/PERIANAL CARE PROVIDED. HYDRAGUARD APPLIED TO SACRALCOCCYX. NEW OPTIFOAM PLACED TO SACRAL COCCYX. PT AWAKE/ALERT. COMBATIVE AT TIMES WHEN PROTECTIVE SIGNAL REPAIRER/RN TRYING TO CHANGE LINEN/GOWN AND PROVIDE PERINEAL CARE. POOR APPETITE NOTED. NO SOB ON 3LNC. NO S/S OF PAIN. PT AWAKE/ALERT, UNABLE TO ASSESS ORIENTATION AT THIS TIME. FOLLOWS SIMPLE COMMANDS, RESPONDS TO VERBAL STIMULI. FALL PREC IN PLACE. IV WNL TO SHAKIRA. SALINE LOCKED. BED IN LOW POSITION. CALL LIGHT WITHIN REACH. WILL CONT. TO MONITOR.
--- NOTE | 2019-08-31 14:01 | NUR ---
PHYSICAL THERAPY NOTE ATTEMPTED FOR PHYSICAL THERAPY EVAL, PATIENT REQUESTED TO HOLD ON MOBILITY ASSESSMENT DUE TO BEING TOO TIRED AND SLEEPY. FOLLOW UP TOMORROW FOR EVAL.
--- NOTE | 2019-08-31 16:33 | NUR ---
.CALLED AND SPOKE TO DR.SAMUEL ANTONIO(NEPHRO) TO FOLLOW UP WHEN HE WILL COME. NOT AWARE YET OF HIS CONSULT. UPDATED HIM OF PT CURRENT STATUS AND LAB RESULTS, HE TOLD ME TO NOTIFY THE RESIDENT TO CALL HIM ON HIS CELL. CALLED AND SPOKE TO (RESIDENT) ASSIGNED TO THIS PT AND MADE HER AWARE OF ABOVE. ROSALIA VARNER ASSIGNED TO THIS PT MADE AWARE OF ABOVE. WILL AWAIT FOR FURTHER PLAN.
[2019-08-31 17:36] VITALS: BP 127/51
--- NOTE | 2019-08-31 18:43 | NUR ---
PT INCONTINENT OF URINE, PERINEAL CARE PROVIDED. LINEN CHANGED. PT COMBATIVE, PULLING OFF OXYGEN. CONFUSED AT TIMES. OXYGEN REPLACED, RUNNING AT 2LNC. PT REORIENTED. HOB ELEVATED. NO S/S OF ACUTE DISTRESS. NO CHEST PAIN. IV WNL TO RFA, IV SALINE LOCKED. FALL PREC IN PLACE. BED IN LOW POSITION. CALL LIGHT WITHIN REACH. WILL ENDORSE TO ONCOMING SHIFT.
--- NOTE | 2019-08-31 19:20 | NUR ---
PT RECEIVED A/O X2, CONFUSED, ABLE TO MAKE NEEDS KNOWN AND FOLLOW SIMPLE COMMANDS. TELE #11, PT DENIES ANY CP/PRESSURE. PULSES PALAPBLE, NO EDEMA PRESENT. BREATHING IS EVEN AND UNLABORED ON 2L NC, NO RESP DISTRESS NOTED. ABD SOFT AND FLAT, DENIES N/V. VOIDS FREELY, EPISODES OF URINARY INCONTINENCE. GENERALIZED WEAKNESS, PT ABLE TO TURN AND REPOSITION INDEPENDENTLY, FALL PRECAUTIONS IN PLACE. ERYTHEMA NOTED TO SACRUM AND LESLIE AREA WITH HYDRAGUARD IN PLACE. PT DENIES HAVING ANY PAIN AT THSI TIME. IV TO RFA, PATENT AND INTACT, SITE WNL. NO ACUTE DISTRESS OBSERVED. BED IN LOWEST SETTING, SIDE RAILS UP X2, CALL LIGHT WITHIN REACH. WILL CONT TO MONITOR.
[2019-08-31 19:44] VITALS: BP 135/56
--- NOTE | 2019-08-31 23:30 | NUR ---
RECEIVED CALL FROM DR MORGAN (ANESTHESIOLOGIST), UPDATED PHYSICIAN ON PT'S STATUS. DR MORGAN ON TELEPHONE CALL WITH COKEMAN-MARIA ELENA BRIAN. PER HOUSE SUP, TUNNEL CATH PLACEMENT IS SCHEDULED FOR 09/01/19 @ 11:[address] JOSÉ HORN. DR MORGAN AWARE OF TIME/DATE OF TUNNEL CATH PLACEMENT. PER DR MORGAN, FOLLOW UP WITH K LEVEL IT NEEDS TO BE LOWER BEFORE PROCEDURE. WILL CONT TO MONITOR.
--- NOTE | 2019-09-01 03:06 | NUR ---
RECEIVED CALL FROM ZOCKO, PER TECH, PT HAD SIX SECOND RUN OF VTACH. PT ASSESSED AND IS ASYMPTOMATIC. PT DENIES HAVING ANY CP/SOB. VSS: 97.7 95% ON 2L NC, 119/45 (112), HR-69, RR-18. NO ACUTE DISTRESS NOTED. DR WELLS CALLED AND MADE AWARE, NO NEW ORDERS RECEIVED.
[2019-09-01 05:04] VITALS: BP 120/50
[2019-09-01 06:38] LABS: PLATELET COUNT 180 x10^3mcL (130-400)
--- NOTE | 2019-09-01 06:41 | NUR ---
PT SLEPT AT INTERVALS THROUGHOUT THE EVENING. BREATHING IS EVEN AND UNLABORED, NO RESP DISTRESS NOTED. PT BECAME AGITATED AND REFUSED NC AND TELE. ATTEMPTED TO REORIENTED PT TO TIME AND PLACE, PT BECAME INCREASINGLY AGITATED WITH STAFF ATTEMPTING TO HIT STAFF WHEN PLACING PT BACK ON TELE. TELE #11 RETURNED TO PRIVATE ADVISOR, DR BRAGA MADE AWARE PT REFUSING TELE. PER DR BRAGA, WILL NOTIFY DR ROBLES. NO ACUTE CHANGES ENCOUNTERED DURING SHIFT. BED ALARM ON. CALL LIGHT WITHIN REACH. WILL ENDORSE CARE TO AM NURSE.
[2019-09-01 07:05] LABS: CALCIUM 6.6 mg/dL (8.5-10.1); CARBON DIOXIDE 12.7 mmol/L (21-32); CHLORIDE SERUM 114 mmol/L (98-107); GLUCOSE SERUM 89 mg/dL (74-106); MAGNESIUM 2.6 mg/dL (1.8-2.4); SODIUM SERUM 148 mmol/L (136-145)
[2019-09-01 07:21] LABS: BASOPHIL % 0 % (0-2)
--- NOTE | 2019-09-01 08:16 | NUR ---
RECEIVED PATIENT FROM TELLY Bernal PATIENT IN BED AT THIS TIME. PATIENT REFUSING VITAL SIGNS, AND ALSO REFUSING TELEMETRY MONITORING. ABG ALSO ORDERED TODAY. WILL ENCOURAGE PATIENT TO DO VITALS, TELEMETRY, AND ABG DRAW. PATIENT SCHEDULED FOR HD TODAY WELL TUNNEL CATH PLACEMENT AT 1130, CONSENT IS SIGNED. CALL LIGHT IN REACH, PATIENT ACROSS FROM NURSES STATION.
[2019-09-01 08:35] LABS: CREATININE SERUM 8.6 mg/dL (0.6-1.0); PHOSPHOROUS 10.6 mg/dL (2.5-4.9); POTASSIUM SERUM 5.8 mmol/L (3.5-5.1)
--- NOTE | 2019-09-01 08:35 | NUR ---
PATIENT REFUSING ABD DRAW, IS COMBATIVE TO RT. CHARGE NURSE JESSICA MADE AWARE. WILL ALSO INFORM DR ROBLES ABOUT DRAW, VS, AND CRITICAL LAB VALUES AT THIS TIME.
--- NOTE | 2019-09-01 10:35 | NUR ---
PATIENT DAUGHTER IN ROOM AND EXPLAINED TO HER WHAT PLAN OF CARE IS TODAY WITH TUNNEL CATH PLACEMENT AND HD TREATMENT. DAUGHTER AWARE. PATIENT AND DAUGTHER ALSO STATE THAT PATIENT HAS BLUE PURSE WITH HER GLASSES, HOWEVER NOT SEEN IN ROOM. WILL ATTEMPT TO CONTACT ED OR [facility] FOR PATIENT BELONGINGS. OR ANDREA CALLED AND REPORT GIVEN, ELIZABETH WIPES GIVEN AND APPLIED TO PATIENT.
--- NOTE | 2019-09-01 11:08 | NUR ---
COOKER LOADERTELLY MARTI UP TO FLOOR TO TAKE PATIENT FOR PROCEDURE.
[2019-09-01 13:00] VITALS: BP 113/54
--- NOTE | 2019-09-01 13:46 | NUR ---
PATIENT RETURNED TO FLOOR VIA GUERNEY. NO SIGNS OF PAIN OR SOB AT THIS TIME. [facility] CATH PLACEMENT TO [facility]. WILL AWAIT FOR HD NURSE KENNA TO BEGIN HD TREATMENT. CALL LIGHT IN REACH AT THIS TIME, PATIENT ACROSS FROM NURSES STATION.
--- NOTE | 2019-09-01 14:27 | NUR ---
PATIENT PICKING AT LINDSAY CATH DRESSING AND REMOVED, CONTINUES TO PICK AT CATHETER AFTER SPEAKING WITH PATIENT IN APPROPRIATE LANGUAGE. SOFT RESTRAINTS NOW INITIATED. SPOKE WITH DR ROBLES AND MADE AWARE, DR ROBLES STATES SHE WILL COME AND SIGN RESTRAINT ORDER. HD NURSE AYAN STATES SHE IS IN ICU AND WILL COME UP TO FLOOR FOR HD TREATMENT. CALL LIGHT IN REACH AT THIS TIME. WILL CONTINUE TO MONITOR.
[2019-09-01 15:23] LABS: UA SPECIFIC GRAVITY >=1.030 (1.005-1.035); microscopic required? YES; urine erythrocyte 2+ (NEGATIVE)
[2019-09-01 15:46] LABS: AMPHETAMINE QUAL UR NONE DETECTED (See below)
--- NOTE | 2019-09-01 16:30 | NUR ---
SPOKE WITH PATIENT DAUGHTER ABOUT LINDSAY CATH PLACEMENT AND NEED FOR RESTRAINTS. ALSO UPDATED HER THAT HD TREATMENT HAS BEGUN. INFORMED DAUGHTER THAT [facility] NURSE [facility], AND DAUGHTER STATED THAT SHE WENT TO [facility] AND HAS PATIENT PURSE AND EYEGLASSES.
[2019-09-01 17:05] VITALS: BP 167/73
--- NOTE | 2019-09-01 17:24 | NUR ---
HD NURSE AYAN IN ROOM CONTINUING TREATMENT. PATIENT SLEEPING IN BED. CALL LIGHT IN REACH.
--- NOTE | 2019-09-01 19:04 | NUR ---
PATIENT COMPLETED HD TREATMENT WITH 500ML OUT PER HD NURSE AYAN. PATIENT CONTINUES TO BE ON SOFT RESTRAINTS BUT BECOMING MORE COOPERATIVE. ID MANTOUX TEST INITIATED TO L ARM AND WILL ENDORSE TO ONCOMING NURSE. SHOULD BE READ 09/03. CALL LIGHT IN REACH. PATIENT CONTINUES TO BE OFF TELEMETRY UNIT, DR ROBLES AWARE.
--- NOTE | 2019-09-01 19:10 | NUR ---
PT RECEIVED A/O X2, CONFUSED, ABLE TO FOLLOW SIMPLE COMMANDS. PT REFUSING TELE MONITOR AT THIS TIME. PULSES PALAPBLE, NO EDEMA PRESENT. BREATHING IS EVEN AND UNLABORED ON AND OFF 2L NC, NO RESP DISTRESS NOTED. ABD SOFT AND FLAT, DENIES N/V. VOIDS FREELY, EPISODES OF URINARY INCONTINENCE. PT COMPLETED HD TODAY WITH 500 ML OUTPUT, LINDSAY CATH IN PLACE TO RIJ, SITE WNL. GENERALIZED WEAKNESS, PT ABLE TO TURN AND REPOSITION INDEPENDENTLY, FALL PRECAUTIONS IN PLACE. ERYTHEMA NOTED TO SACRUM AND LESLIE AREA WITH HYDRAGUARD IN PLACE. PT RESISTIVE TO NURSING CARE, JAMI SOFT WRIST RESTRAINTS IN PLACE, SKIN AND CIRCULATION WNL. PT DENIES HAVING ANY PAIN AT THIS TIME. IV TO RFA, PATENT AND INTACT, SITE WNL. NO ACUTE DISTRESS OBSERVED. BED ALARM ON. BED IN LOWEST SETTING, SIDE RAILS UP X2, CALL LIGHT WITHIN REACH. WILL CONT TO MONITOR
--- NOTE | 2019-09-01 20:00 | NUR ---
PT AGREEABLE TO BEING PLACED ON TELE. TELE #11 PLACED, ST WITH PACs, PT DENIES HAVING ANY CP/PRESSURE. NO ACUTE DISTRESS NOTED. WILL CONT TO MONITOR.
[2019-09-01 20:19] VITALS: BP 142/79
--- NOTE | 2019-09-02 01:20 | NUR ---
PT AWAKE AND ALERT, RESTLESS. PT REFUSING BREATHING TX AND NC, NO RESP DISTRESS OBSERVED. PT INCONTINENT OF URINE AND STOOL, PT CLEANED AND REPOSITIONED, GOWN AND LINENS CHANGED. PT COMBATIVE UPON CLEANING. JAMI SOFT WRIST RESTAINTS IN PLACE, SKIN AND CIRCULATION WNL. NO ACUTE DISTRESS NOTED. BED ALARM ON, CALL LIGHT WITHIN REACH. WILL CONT TO MONITOR.
--- NOTE | 2019-09-02 06:40 | NUR ---
PT SLEPT AT INTERVALS THROUGHOUT THE EVENING. BREATHING IS EVEN AND UNLABORED ON AND OFF OF 2L NC, NO RESP DISTRESS NOTED. PT DENIES HAVING ANY PAIN AT THIS TIME. PT REMAINS NPO FOR TUNNEL CATH INSERTION TODAY. RI LINDSAY CATH IN PLACE, CDI. PT INCONTINENT OF URINE AND STOOL, PT CLEANED AND REPOSITIONED, ZGUARD AND OPTIFOAM PLACED. PT PLACED ON AIR MATTRESS. PT REMAINS COMBATIVE AND RESISITVE TO NURSING CARE AT TIMES, JAMI SOFT WRIST RESTRAINTS IN PLACE, SKIN AND CIRCULATION WNL. NO ACUTE CHANGES ENCOUNTERED DURING SHIFT. ALL NEEDS MET AND ANTICIPATED. BED ALARM ON. CALL LIGHT WITHIN REACH. WILL ENDORSE CARE TO AM NURSE.
[2019-09-02 06:45] LABS: PLATELET COUNT 163 x10^3mcL (130-400)
[2019-09-02 06:46] LABS: CARBON DIOXIDE 25.9 mmol/L (21-32); CHLORIDE SERUM 107 mmol/L (98-107); GLUCOSE SERUM 90 mg/dL (74-106); MAGNESIUM 1.7 mg/dL (1.8-2.4); POTASSIUM SERUM 3.6 mmol/L (3.5-5.1); SODIUM SERUM 147 mmol/L (136-145)
[2019-09-02 06:48] VITALS: BP 164/77
[2019-09-02 06:57] LABS: CREATININE SERUM 4.2 mg/dL (0.6-1.0)
[2019-09-02 07:08] LABS: BASOPHIL % 0 % (0-2); RED CELL DISTRIBUTION WIDTH 19.1 % (11.5-14.5)
--- NOTE | 2019-09-02 07:10 | NUR ---
RECIEVED PT RESTING IN BED WITH NO S/S OF ANY PAIN OR DISTRESS. A/OX3. TELE#11 CONNECTED TO PT, DENIES ANY CP OR PRESSURE. PT ON 2 LPMO2 NC, NO SOB NOTED. AVELINA MONTOYA CDI. RFA CDI AND PATENT. PT ON BILAT SOFT WRIST RESTRAINTS, MONITORING PER PROTOCAL. SKIN CDI NEAR RESTRAINT SITES. SAFETY PRECAUTIONS IN PLACE, CALL LIGHT IWTHIKinga REACH, WILL MONITOR.
[2019-09-02 09:16] VITALS: BP 166/79
[2019-09-02 13:22] VITALS: BP 174/83
--- NOTE | 2019-09-02 13:47 | NUR ---
Initial Nutrition Assessment: 218T/A FREEDOM BARROW Dx: Hyperkalemia, renal failure PMHx: HTN, COPD, CKD 5, Hypothyroidism, GERD PSHx: Right Nephrectomy in 2008 Labs: NA 147H, BUN 46H, CREAT 4.2H, ALB 2.8L, MG 1.7L, WBC 11.1H Meds: Colace, D 50%, lipids, Humulin, Lasix, Pepcid, phoslo, Procrit, synthyroid, zofran Diet: NPO (Sx), (09/01) Renal PO intake since admission: (09/01) lunch 10%, breakfast 0%, (08/31) dinner, lunch 0% Ht: 149.86 cm (59") Wt: 31.4 kg (69#) BMI: 14 kg/m2 Bed scale: 31.4 kg IBW: 95# (43 kg) %IBW: 73 UBW: unable to access as pt sleeping Age: 83/F Food Allergies: NKFA Skin: erythema noted to sacrum and perineal with optifoam Julio: 14 Edema: none GI: Last BM: 09/02 Per H&P, Pt is a 83 year old female with past medical history of HTN, COPD, 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 RD Note (09/02): Patient was sleeping and looked extremely emaciated and malnourished. Per progress note (09/02), Patient is scheduled for tunneled catheter placement today for continued HD. Patient has poor PO Problem with: N/V/D/C: none per shift reassessment Problems with: Chewing: Swallowing: none Current appetite: poor Recent wt change: unable to access %wt change: n/a Vitamin/Supplement use: unable to access Special diet at home: unable to access Physical activity: unable to access Nutrition education given: not possible at this time as patient was sleeping Food-drug interactions: none Education given: n/a Estimated Nutritional Needs Based on current body weight (31.4 kg) Energy: 6886-5830 kcal/day (40-45 kcal/kg for malnutrition) Protein: 38-47 g/day (1.2-1.5 g/kg for malnutrition) Fluid: 8094-7631 mL/day (1 mL/kcal) Nutrition Diagnosis: 1. Malnutrition related to chronic poor PO, medical conditions as evidenced by BMI 14 kg/m2. Intervention 1. Recommend Renal diet when medically appropriate. 2. Recommend ONS Nepro BID. This will provide additional of 850 kcal and 38g protein. This will aid in meeting >75% of estimated calorie and protein needs of the patient. Discussed with HOUSE VISITOR Waylon. Monitor/Evaluate Goal: PO intake at least 75% of estimated needs Monitor: PO intake, Labs, GI function F/U in 2-3 days as high risk 09/04-
--- NOTE | 2019-09-02 13:47 | NUR ---
1. Recommend Renal diet when medically appropriate. 2. Recommend ONS Nepro BID. This will provide additional of 850 kcal and 38g protein. This will aid in meeting >75% of estimated calorie and protein needs of the patient. Discussed with JENNIFER oCnnors.
--- NOTE | 2019-09-02 14:32 | NUR ---
RECIEVED CALL FROM OR STATING THAT PROCEDURE WAS CANCELLED UNTIL THURSDAY, JENNIFER CARBONE MADE AWARE AND NEW ORDER FOR RENAL DIET WITH THICKENED LIQUIDS NOTED AND CARRIED OUT.
--- NOTE | 2019-09-02 17:12 | NUR ---
HEPARIN 10,000 UNITS GIVEN TO TELLY PIÑABUILDING MOVER NURSE, FOR POST HD PROCEDURE FOR PT.
[2019-09-02 17:24] VITALS: BP 184/88
--- NOTE | 2019-09-02 18:14 | NUR ---
HD COMPLETED. BP:179/88, HR 99. NO OUTPUT TAKEN. PT STABLE.
--- NOTE | 2019-09-02 18:35 | NUR ---
HYDRALAZINE GIVEN FOR BP OF 179/88, HR 99. WILL RECHECK BP.
[2019-09-02 18:49] VITALS: BP 108/71
--- NOTE | 2019-09-02 18:49 | NUR ---
BP NOW AT 108/71, HR 89. PT STABLE WITH NO DISTRESS NOTED.
--- NOTE | 2019-09-02 18:50 | NUR ---
PT STABLE WITH NO S/S OF ANY PAIN OR DISTRESS. A/O X2-3. TELE #11 CONNECTED TO PT, DENIES CP OR PRESSURE. PT ON RA WITH SATURATION AT 93%. LESLIE AREA KEPT CDI WITH ZGUARD AND OPTIFOAM. RFA IV CDI AND PATENT AND RIJ CDI. BILATERAL SOFT WRIST RESTRAINTS IN PLACE PER PROTOCAL. SAFETY PRECAUTIONS IN PLACE, CALL LIGHT WITHIN REACH, WILL ENDORSE CARE TO NIGHT NURSE.
--- NOTE | 2019-09-02 19:15 | NUR ---
RECIEVED PT RESTING IN BED WITH NO ACUTE DISTRESS NOTED AT THIS TIME, ASSESMENT PERFORMED AT THIS TIME, PT IS CONFUSED, ORIENTED TO PERSON, PT DENIES PAIN OR SOB, PT HAS SOFT WRIST RESTRAINTS ON WITH TWO FINGERS OF SPACE, PULSES PALPABLE, SKIN INTACT UNDER RESTRAINTS, REDNESS TO THE COCCYX AND PERINEAL AREA, OPTIFOAM IN PLACE, ALL PT NEEDS ATTENDED TO, SAFETY PRECAUTIONS IN PLACE, WILL CONTINUE TO MONITOR.
[2019-09-02 20:31] VITALS: BP 130/71
--- NOTE | 2019-09-02 23:16 | NUR ---
REPORTED TO WAI RN, PT STABLE AT THIS TIME, N0 PAIN OR SOB, SAFETY PRECAUTIONS IN PLACE, ENDORSED CARE
--- NOTE | 2019-09-02 23:20 | NUR ---
RECEIVED REPORT FROM MIGUEL VARNER. PT IS SLEEPING AT THIS TIME. NO ACUTE DISTRESS NOTED. WILL CONTINUE TO MONITOR.
[2019-09-03] VITALS (7 sets, daily range): BP systolic 124–187; BP diastolic 53–83
--- NOTE | 2019-09-03 00:29 | NUR ---
PT SLEEPING. PT BREATHING EVEN AND UNLABORED. NO ACUTE DISTRESS NOTED. BILATERAL SOFT RESTRAINTS IN PLACE, SKIN AND CIRCULATION WNL. CALL LIGHT WITHIN REACH. BED IN LOWEST POSITION. SIDE RAILS X2 UP. WILL CONTINUE TO MONITOR.
--- NOTE | 2019-09-03 02:58 | NUR ---
PT SLEEPING AND BREATHING EVEN AND UNLABORED. NO ACUTE DISTRESS NOTED. BILATERAL SOFT RESTRAINTS IN PLACE, SKIN AND CIRCULATION WNL. PT CLEANED AFTER SMALL VOID. PT REPOSITIONED TO LEFT SIDE. CALL LIGHT WITHIN REACH. BED IN LOWEST POSITION. SIDE RAILS X2 UP. WILL CONTINUE TO MONITOR.
--- NOTE | 2019-09-03 03:49 | NUR ---
PT SLEEPING. PT BREATHING EVEN AND UNLABORED. NO ACUTE DISTRESS NOTED. CALL LIGHT WITHIN REACH. BED IN LOWEST POSITION. SIDE RAILS X2 UP. WILL CONTINUE TO MONITOR.
--- NOTE | 2019-09-03 05:04 | NUR ---
PT SLEPT FOR MOST OF THE NIGHT. PT ONLY WOKE UP WHEN HE HAD TO USE THE RESTROOM. PT COMPLIED WITH NURSING CARE THROUGHOUT THE SHIFT. NO ACUTE DISTRESS NOTED THROUGHOUT THE SHIFT. SAFETY AND COMFORT MEASURES MAINTAINED DURING THE SHIFT. ALL NEEDS AND CONCERNS ADDRESSED. CALL LIGHT WITHIN REACH. BED IN LOWEST POSITION. SIDE RAILS X2 UP. WILL CONTINUE TO MONITOR. WILL ENDORSE TO DAY SHIFT NURSE.
[2019-09-03 06:03] LABS: PLATELET COUNT 152 x10^3mcL (130-400)
[2019-09-03 06:30] LABS: BASOPHIL % 0 % (0-2)
[2019-09-03 06:44] LABS: CALCIUM 7.1 mg/dL (8.5-10.1); CARBON DIOXIDE 24.8 mmol/L (21-32); CHLORIDE SERUM 105 mmol/L (98-107); CREATININE SERUM 3.3 mg/dL (0.6-1.0); GLUCOSE SERUM 88 mg/dL (74-106); MAGNESIUM 1.6 mg/dL (1.8-2.4); POTASSIUM SERUM 3.9 mmol/L (3.5-5.1); SODIUM SERUM 144 mmol/L (136-145)
--- NOTE | 2019-09-03 07:15 | NUR ---
RECIEVED PT RESTING IN BED WITH NO S/S OF ANY PAIN OR DISTRESS. PT A/O X2. TELE# 11 CONNECTED TO PT, NO S/S OF ANY CP OR PRESSURE. LUNGS CTAB, NO SOB NOTED. RIJ CDI AND RFA CDI AND PATENT. BILATERAL SOFT WRIST RESTRAINTS IN PLACE AND MONITORED PER PROTOCAL. SKIN CDI AT SITE. ERYTHMA NOTED TO SACRAL/LESLIE ARE, ZGUARD AND OPTIFOAM APPLIED. KEEPING SKIN CLEAN AND DRY. SAFETY PRECAUTIONS IN PLACE, CALL LIGHT WITHIN REACH, WILL MONITOR.
--- NOTE | 2019-09-03 08:58 | NUR ---
HYDRALAZINE GIVEN FOR BP OF 187/72 AND HR 102, WILL RECHECK.
--- NOTE | 2019-09-03 09:25 | NUR ---
BP NOW AT 147/86 AND HR 101, NO DISTRESS NOTED AND WILL MONITOR.
--- NOTE | 2019-09-03 09:37 | NUR ---
PT HAVING POOR INTAKE AND REFUSING MEALS, JENNIFER CARBONE MADE AWARE. WILL CARRY OUT ANY NEW ORDERS.
--- NOTE | 2019-09-03 17:33 | NUR ---
HYDRALOZINE GIVEN FOR BP OF 176/76, WILL REASSESS.
--- NOTE | 2019-09-03 18:10 | NUR ---
BP 130/64, PT STABLE WITH NO S/S OF DISTRESS.
--- NOTE | 2019-09-03 18:29 | NUR ---
PT STABLE WTIH NO S/S OF ANY PAIN, DISTRESS, OR SOB. A/OX 1-2. TELE #11 CONNECTED TO PT, NO S/S OF ANY CP OR PRESSURE NOTED. LUNGS CTAB. LESLIE AREA KEPT CLEAN AND DRY ALL SHIFT WITH ZGUARD AND OPTIFOAM. TURNED Q2 HR AND PRN. BILATERAL SOFT WRIST RESTRAINTS STILL ON AND MONITORED PER PROTOCAL. SKIN SITE CDI. LEFT WRIST IV CDI AND PATENT. SAFETY PRECAUTIONS IN PLACE, CALL LIGHT WITHIN REACH, WILL ENDORSE CARE TO NIGHT NURSE.
--- NOTE | 2019-09-03 19:20 | NUR ---
RECIEVED PT IN NO ACUTE DISTRESS, ASSESSMENT PREFORMED AT THIS TIME, PT IS A/OX1 TO PERSON, PT HAS EPISODES OF CONFUSION, PT IS RESPONSIVE TO VERBAL STIMULI, NO SIGNS OF PAIN OR SOB, PT IS IN SOFT WRIST RESTRAINTS, TWO FINGER WIDTH OF SPACE PRESENT, PERIPHERAL PULSES PALPABLY STRONG, SKIN INTACT UNDER RESTRAINTS, REDNESS TO THE LESLIE AREA AND COCCYX, ZGUARD APPLIED TO LESLIE AREA, OPTIFOAM ON COCCYX CDI, ALL PT NEEDS ATTENDED TO, SAFETY PRECAUTIONS IN PLACE, WILL CONTINUE TO MONITOR.
--- NOTE | 2019-09-03 21:50 | NUR ---
PT RESTING IN BED WITH NO ACUTE DISTRESS NOTED AT THIS TIME, SOFT WRIST RESTRAINTS IN PLACE, ALL PT NEEDS ATTENDED TO LINEN CHANGED AND PT CLEANED, SAFETY PRECAUTIONS IN PLACE, WILL CONTINUE TO MONITOR
--- NOTE | 2019-09-04 00:20 | NUR ---
PT IN BED AND CALM, NO SIGNS OF PAIN OR SOB AT THIS TIME, SOFT WRIST RESTRAINTS IN PLACE AND PERIPHERAL PULSES STRONGLY PALPABLE THROUGHOUT, SKIN INTACT UNDER RESTRAINTS, ALL NEEDS ATTENDED TO, SAFETY PRECAUTIONS IN PLACE, WILL CONTINUE TO MONITOR
--- NOTE | 2019-09-04 02:05 | NUR ---
PT RESTING IN BED WITH NO ACUTE DISTRESS, PT IS CONFUSED, RESTRAINTS IN PLACE AND TWO FINGERS OF SPACE IN BETWEEN, SKIN INTACT AND NO SIGNS OF REDNESS UNDER RESTRAINTS, ALL PT NEEDS ATTENDED TO AT THIS TIME.
[2019-09-04 05:12] VITALS: BP 168/85
--- NOTE | 2019-09-04 06:29 | NUR ---
PT RESTED IN BED THROUGH THE NIGHT, PT HAD NO SIGNS OF PAIN DURING CARE, RESTRAINTS REMIANED IN PLACE WITH PERIODIC BREAKS PER RESTRAINT PROTOCOL, PT WAS CLEANED AND ZGUARD APPLIED TO REDDEND AREAS AND CLEAN OPTIFOAM WAS APPLIED TO COCCYX/SACRAL REGION, ALL PT NEEDS ATTENDED TO, SAFETY PRECAUTIONS REMAINED IN PLACE, WILL CONTINUE TO MONITOR AND ENDORSE CARE
[2019-09-04 06:57] LABS: CALCIUM 6.8 mg/dL (8.5-10.1); CARBON DIOXIDE 26.9 mmol/L (21-32); CHLORIDE SERUM 107 mmol/L (98-107); GLUCOSE SERUM 109 mg/dL (74-106); MAGNESIUM 2.6 mg/dL (1.8-2.4); POTASSIUM SERUM 3.9 mmol/L (3.5-5.1); SODIUM SERUM 146 mmol/L (136-145)
[2019-09-04 07:08] LABS: BASOPHIL % 0 % (0-2); PLATELET COUNT 127 x10^3mcL (130-400); RED CELL DISTRIBUTION WIDTH 20.3 % (11.5-14.5)
--- NOTE | 2019-09-04 07:30 | NUR ---
RECEIVED PATIENT RESTING IN BED, NO ACUTE DISTRESS NOTED. PATIENT ALERT AND ORIENTATED TO SELF. NO RESP DISTRESS NOTED. RIJ CDI & PATENT. GENERALIZED WEAKNESS NOTED, AIR MATRESS APPLIED. ERYTHEMA NOTED TO COCCYX, OPTIFOAM APPLIED. IV TO LEFT WRIST SALINE LOCK, CDI&PATENT. BILATERAL SOFT WRIST RESTRAINTS APPLIED, WNL. CALL LIGHT WITHIN REACH, BED IN LOW POSITION, WILL CONTINUE TO MONITOR.
[2019-09-04 07:51] LABS: CREATININE SERUM 4.7 mg/dL (0.6-1.0)
[2019-09-04 08:44] VITALS: BP 168/78
--- NOTE | 2019-09-04 09:25 | NUR ---
PATIENT WAS REFUSING PO MEDS AT THIS TIME, AND REFUSING TO EAT. PATIENT BEGAN GETTING AGITATED AND ATTEMPING TO REMOVE IV. PATIENT EVENTUALLY CALM DOWN AFTER TRYING TO VERBALLY REORIENTATE PATIENT. WILL CONTINUE TO MONITOR FOR CHANGES.
--- NOTE | 2019-09-04 12:20 | NUR ---
PATIENT BEGAN REMOVING TELE MONITOR AND PULLED OUT IV AT THIS TIME. PATIENT STATED HE HAS LOTS TO DO, AND NEEDS TO LEAVE. PATIENT STATED THE DIAGNOSTIC TECHNICIAN WON'T BE IN TODAY, SO THERE IS NO POINT IN BEING HERE. DR. AREVALO WAS NOTIFIED OF THE SITUATION, AND WAS ABLE TO TALK AND CONVINCE PATIENT TO STAY. UPDATED PATIENT WITH THE PLAN OF CARE. TELE MONITOR WAS REAPPLIED AT THIS TIME.
--- NOTE | 2019-09-04 12:30 | NUR ---
NEW IV WAS INSERTED BY TELLY TAM TO RIGHT HAND 22G, IV SITE CDI & PATENT.
--- NOTE | 2019-09-04 14:30 | NUR ---
HEMODIALYSIS NURSE AT BEDSIDE.
[2019-09-04 15:03] VITALS: BP 161/97
[2019-09-04 16:25] VITALS: BP 164/79
--- NOTE | 2019-09-04 16:25 | NUR ---
HD COMPLETED. NO OUTPUT FOR DIALYSIS. PATIENT S/P HD BP WAS 164/79 HR 77, MORNING BP MED (NORVASC) GIVEN AT THIS TIME. WILL CONTINUE TO MONITOR.
[2019-09-04 16:45] VITALS: BP 152/79
--- NOTE | 2019-09-04 18:19 | NUR ---
PATIENT SITTING UP IN BED COMFORTABLY, PATIENT DENIES PAIN. NO ACUTE DISTRESS NOTED. PATIENT WAS OFFERED FOOD& FLUIDS, TOLIETING. PATIENT WAS REFUSING AT THIS TIME, STATED SHES OKAY. NO RESP DISTRESS NOTED, DENIES SOB. IV TO LEFT WRIST SALINE LOCK, CDI&PATENT. BILATERAL SOFT WRIST RESTRAINTS WNL. CALL LIGHT WITHIN REACH, BED IN LOW POSITION. WILL CONTINUE TO MONITOR AND ENDORSE REPORT.
--- NOTE | 2019-09-04 19:34 | NUR ---
RECEIVED PATIENT IN BED AWAKE, ORIENTED TO PERSON ONLY. NO SIGN OF ACUTE RES[PIRATORT DISTRESS NOTED. BREATHING EASY AND NONLABOR SATTING AT 98% RA. HEMODIALYSIS PATIENT LAST HD TODAY WITH NO OUTPUT PER AM RN, AVELINA MONTOYA CATH CDI. SALINE LOCK TO LW FLUSHED WITH NS. SOFT WRIST RESTRAINTS IN PLACE WITH GOOD CIRCULATION TO BUA NOTED. WILL CONTINUE TO MONITOR, BED TO LOWEST POSITION.
[2019-09-04 21:22] VITALS: BP 163/52
--- NOTE | 2019-09-05 00:04 | NUR ---
AWAKE CALM WITH NO SIGN OF DISTRESS NOTED. BREATHING EASY AND NONLABOR.
[2019-09-05 05:09] VITALS: BP 163/79
--- NOTE | 2019-09-05 05:19 | NUR ---
SLEPT FAIRLY NO DISTRESS. CHECKED AT INTERVALS FOR NEEDS AND SAFETY. ALL NEEDS ATTENDED.
--- NOTE | 2019-09-05 08:20 | NUR ---
RECEIVED IN NO ACUTE DISTRESS. AWAKE, CONFUSED. TRYING TO PULL OUT TUBES AND LINES. JAMI. SOFT WRIST RESTRAINTS IN PLACE. NO S/S OF PAIN OR DISCOMFORT AT THIS TIME. SIDE RAILS UP AND CALL LIGHT WITHIN REACH. WILL CONTINUE WITH PLAN OF CARE.
[2019-09-05 09:00] VITALS: BP 160/79
--- NOTE | 2019-09-05 09:00 | NUR ---
JAMI. SOFT WRIST RESTRAINTS OFF, PT ALERT AND FOLLOWS COMMANDS. WILL CONTINUE TO MONITOR.
--- NOTE | 2019-09-05 10:03 | NUR ---
RESTRAINTS OFF AT THIS TIME. FAMILY AND SITTER AT BEDSIDE. PT IS MORE AWAKE AND FOLLOWS SIMPLE COMMANADS. WILL CONTINUE TO MONITOR.
[2019-09-05 11:22] VITALS: BP 163/79
--- NOTE | 2019-09-05 12:30 | NUR ---
GLU 71, PT ASYMPTOMATIC BUT NPO FOR PROCEDURE. BLISTER RUST ERADICATOR OWEN MADE AWARE. OK'D TO GIVE LALF AN AMPULE OF D50% . MEDS GIVEN ORDERED.
[2019-09-05 13:37] VITALS: BP 124/67
--- NOTE | 2019-09-05 15:38 | NUR ---
HEMODIALYSIS IN PROGRESS, PT TOLERATING WELL. NO ACUTE DISTRESS. NO CHANGES IN VS.
--- NOTE | 2019-09-05 16:23 | NUR ---
HD COMPLETED, PT TOLERATED WELL. NO CHANGES IN VS. NO RESP. DISTRESS. AWAKE AND ALERT NOW. FOLLOWS COMMANDS. JAMI. SOFT WRIST RESTRAINTS REMAINS OFF.
[2019-09-05 17:54] VITALS: BP 153/75
--- NOTE | 2019-09-05 18:26 | NUR ---
PT REMAINS IN NO DISTRESS. AWAKE, ALERT AND ORIENTED. FOLLOWS COMMANDS. NO C/O PAIN OR DISCOMFORT AT THIS TIME. JASE. WELL WITH MEALS. NO C/O N/V. VS REMAINS WNL. CALL LIGHT WITHIN REACH. WILL BE ENDORSED TO INCOMING SHIFT.
--- NOTE | 2019-09-05 19:59 | NUR ---
RECEIVED PATIENT IN BED AWAKE,MORE ALERT AND ORIENTED TO PERSOSN AND PLACE NOW COMPARED YESTERDAY PATIENT VERY CONFUSED. RESPIRATION EVEN AND NONLABOR SATTING AT 97% RA. ABDOMEN SOFT AND NONTENDER WITH ACTIVE BS, RIJ LINDSAY CATH IN PLACE CDI. IV TO RFA AND LFA HEPLOCKED FLUSHED WITH NS. WILL CONTINUE TO MONITOR. CALL LIGTH WITHIN REACH.
[2019-09-05 20:29] VITALS: BP 139/74
--- NOTE | 2019-09-05 23:33 | NUR ---
APPEAR TO BE SLEEPING THIS TIME BREATHING EASY AND NONLABOR. WILL CONTINUE TO MONITOR.
[2019-09-06 04:15] VITALS: BP 146/70
--- NOTE | 2019-09-06 05:16 | NUR ---
CHECKED AT INTERVALS FOR NEEDS AND SAFETY. REPOSITIONED FOR COMFORT.
--- NOTE | 2019-09-06 05:40 | NUR ---
HAD 2 LOOSE BM THE ENTIRE SHIFT. ALL NEEDS ATTENDED. REPOSITIONED FOR COMFORT.
[2019-09-06 06:19] LABS: CALCIUM 7.1 mg/dL (8.5-10.1); CARBON DIOXIDE 28.2 mmol/L (21-32); CHLORIDE SERUM 98 mmol/L (98-107); CREATININE SERUM 2.8 mg/dL (0.6-1.0); GLUCOSE SERUM 82 mg/dL (74-106); POTASSIUM SERUM 4.2 mmol/L (3.5-5.1); SODIUM SERUM 134 mmol/L (136-145)
--- NOTE | 2019-09-06 07:27 | NUR ---
RECEIVED PATIENT. EASILY AROUSABLE. NO ACUTE RESP DISTRESS NOTED. NO C/O PAIN AT THIS TIME. NO CONFUSION/ AGITATION NOTED. REMAINS NPO. PER NIGHT RN, WAITING FOR DR. HORN FOR TUNNEL PERMACATH PLACEMENT. RIJ LINDSAY CATH INTACT. IV TO RFA AND LFA INTACT. NO INFILTRATION NOTED. SALINE LOCK TO BOTH IV. SLEPING IN RIGHT LATERAL POSITION. SAFETY PRECAUTION IN PLACE. BED IN LOW POSITION. CALL LIGHT WITHIN REACH. WILL CONTINUE TO MONITOR.
[2019-09-06 07:46] LABS: PLATELET COUNT 97 x10^3mcL (130-400); RED CELL DISTRIBUTION WIDTH 20.6 % (11.5-14.5)
--- NOTE | 2019-09-06 08:09 | NUR ---
SPOKE WITH DR. HORN REGARDING TUNNEL PERMA CATH PLACEMENT. PER DR. HORN, KEEP PATIENT NPO AND HE WILL COME IN THE AFTERNOON TO DO TUNNEL PERMACATH PLACEMENT. WILL NOTIFY PATIENT. WILL CONTINUE TO MONITOR.
[2019-09-06 09:02] VITALS: BP 154/73
--- NOTE | 2019-09-06 09:35 | NUR ---
PATIENT IN BED, SLEEPING. EASILY AROUSABLE. AAOX4. NO CONFUSION NOTED. NO ACUTE RESP DISTRESS NOTED. NO C/O PAIN OR PRESSURE. RIJ LINDSAY CATH INTACT. RFA AND LFA IV BOTH INTACT AND PATENT. NO INFILTRATION NOTED. SAFETY PRECAUTION IN PLACE. CALL LIGHT WITHIN REACH. WILL CONTINUE TO MONITOR.
[2019-09-06 11:08] LABS: BAND NEUTROPHIL 0 % (0-10); BASOPHIL 0 % (0-2); MONOCYTE 6 % (0-7); SEGMENTED NEUTROPHILS 73 % (37-75)
[2019-09-06 11:10] LABS: PLATELET MORPHOLOGY LARGE PLATELET SEEN; ovalocyte/elliptocyte 1+; rbc morphology (normal/abnorm) ABNORMAL (NORMAL); tear drop cell (dacryocyte) 1+
--- NOTE | 2019-09-06 12:00 | NUR ---
PATIENT IN BED, SLEEPING. EASILY AROUSABLE. NO CONFUSION OR AGITATION NOTED. NO ACUTE RESP DISTRESS NOTED. NO C/O PAIN OR PRESSURE. RIJ LINDSAY CATH INTACT. RFA AND LFA IV BOTH INTACT AND PATENT. NO INFILTRATION NOTED. SAFETY PRECAUTION IN PLACE. EDUCATED ABOUT GOALS FOR TODAY. CALL LIGHT WITHIN REACH. WILL CONTINUE TO MONITOR.
--- NOTE | 2019-09-06 15:35 | NUR ---
PATIENT IN BED, AWAKE AND ALERT. ASKING FOR COFFEE. REINFORCED TEACHING THAT PATIENT IS CURRENTLY NPO PER DOCTOR'S ORDERS. PATIENT STATED THAT PROCEDURE IS POSTPONED FOR TODAY. CONFIRMED WITH CHARGE NURSE IF PROCEDURE WAS POSTPONED. PER CHARGE NURSE, SHE CONFIRMED THAT PROCEDURE IS NOT POSTPONED AND STILL HAPPENING. NO COFFEE WAS GIVEN TO PATIENT AND EDUCATED PATIENT ABOUT NEED TO REMAIN NPO. PATIENT VERBALIZED UNDERSTANDING BUT SLIGHTLY IRRITATED. SAFETY PRECAUTION IN PLACE. CALL LIGHT WITHIN REACH. WILL CONTINUE TO MONITOR.
[2019-09-06 16:06] VITALS: BP 137/77
--- NOTE | 2019-09-06 16:54 | NUR ---
D/C IV TO LFA DUE TO BLOOD LEAKING NOTED. CATHETER INTACT, TOLERATED WELL. GAUZE AND TAPE IN PLACE. WILL CONTINUE TO MONITOR.
--- NOTE | 2019-09-06 17:10 | NUR ---
PATIENT IS TAKEN DOWN TO OR AT THIS TIME VIA BED WITH TELLY MARTI AND ANOTHER RN. PATIENT STABLE. NO DISTRESS NOTED. WILL WAIT FOR ARRIVAL TO UNIT.
--- NOTE | 2019-09-06 18:50 | NUR ---
RECEIVED PATIENT BACK FROM OR VIA BED, WITH TELLY MARTI. STABLE. NO ACUTE RESP DISTRESS NOTED. PLACED ON 2L NC TO KEEP SATURATION ABOVE 92% AND COMFORT. LINDSAY CATH OUT, CLOSED WITH SUTURE. 2X[address] TUNNEL CATH IN PLACE WITH BIOPATCH AND TEGADERM. BAG IS ORDERED TO STAY ON FOR FOUR HOURS. 18:18 ON, AND REMOVE AT 22:18 TO BE RETURNED TO INSTALLER APPRENTICE. NO C/O PAIN AT THIS TIME. SAFETY PRECAUTION IN PLACE. CALL LIGHT WITHIN REACH. WILL ENDORSE TO HOSPITALITY JOB TITLES NURSE.
--- NOTE | 2019-09-06 19:45 | NUR ---
RECEIVED REPORT FROM DAY SHIFT RN. PT RESTING COMFORTABLY. AA&O X2, PERSON/PLACE. NO SOB NOTED. BREATHING EVEN AND UNLABORED. IV TO RFA, INTACT. RIJ TUNNELED PERMA CATH, DRESSING WITH SMALL AMOUNT OF BLOOD STAIN. SAFETY MEASURES IN PLACE. BED IN LOWEST POSTION. SIDE RAILS UP X2. AIR MATTRESS IN PLACE. DEMONSTRATED HOW TO USE THE CALL LIGHT FOR ASSISTANCE. CALL LIGHT WITHIN REACH.
[2019-09-06 20:07] VITALS: BP 147/73
--- NOTE | 2019-09-07 00:10 | NUR ---
UPON ASSESSMENT OF PT, PT SEEN RESTING IN BED W/ EYES CLOSED, NO S/S OF PAIN NOTED. IV SITE REMAINS PATENTT TO RFA, SALINE LOCKED AT THIS TIME. RIJ TUNNELED CATH REMAINS PATENT, NO REDNESS, SWELLING OR PAIN NOTED. ENVIRONMENT FREE OF CLUTTER, CALL LIGHT WITHIN REACH, BED IN LOWEST POSITION, WILL CONTINUE TO MONITOR.
[2019-09-07 05:22] VITALS: BP 160/75
[2019-09-07 06:30] LABS: CALCIUM 7.3 mg/dL (8.5-10.1); CARBON DIOXIDE 26.8 mmol/L (21-32); CHLORIDE SERUM 94 mmol/L (98-107); CREATININE SERUM 3.9 mg/dL (0.6-1.0); GLUCOSE SERUM 82 mg/dL (74-106); POTASSIUM SERUM 4.3 mmol/L (3.5-5.1); SODIUM SERUM 131 mmol/L (136-145)
--- NOTE | 2019-09-07 06:59 | NUR ---
PT RESTED IN INTERVALS DURUNG SHIFT. NO SOB NOTED ON ROOM AIR. NO C/O PAIN. NO DISTRESS NOTED. RIJ TUNNELED CATH WITH SMALL AMOUNT OF BLOOD STAIN. HD TODAY. CURRICULUM DEVELOPMENT COORDINATOR AWARE. SAFETY MEASURES MAINTAINED. NEEDS ANTICIPATED. CALL LIGHT WITHIN REACH. BED ALARM ON. WILL ENDORSE CARE TO DAY SHIFT RN.
--- NOTE | 2019-09-07 07:56 | NUR ---
RECEIVED PATIENT FROM TELLY JO. PATIENT SLEEPING IN BED AT THIS TIME. NO SIGNS OF SOB OR PAIN. WILL SPEAK WITH PATIENT ONCE AWAKE, WILL MONITOR FOR ANXIETY AND NON COMPLIANCE. CALL LIGHT IN REACH, PATIENT CLOSE TO NURSES STATION.
[2019-09-07 09:03] LABS: BASOPHIL % 0 % (0-2); PLATELET COUNT 117 x10^3mcL (130-400); RED CELL DISTRIBUTION WIDTH 19.3 % (11.5-14.5)
[2019-09-07 09:27] VITALS: BP 159/70
[2019-09-07 13:00] VITALS: BP 142/72
--- NOTE | 2019-09-07 13:09 | NUR ---
HEMODIALYSIS TREATMENT COMPLETE WITH HD NURSE PAULA. 0 L OUT. PATIENT IN BED AT THIS TIME. WILL CONTINUE TO MONITOR.
--- NOTE | 2019-09-07 17:35 | NUR ---
PATIENT IN BED AT THIS TIME. DAUGTHER AND GRANDSON AT BEDSIDE. SPOKE WITH FAMILY THAT PATIENT HAS LOW APPETITE AND THAT STAFF CONTINUES TO ATTEMPT TO FEED PATIENT. FAMILY AGREES. DR JOSÉ HORN DIALED IN TO CHECK ON PATIENT TUNNEL CATH AND REPORTED NO COMPLICATIONS. WILL CONTINUE TO MONITOR AND ENDORSE TO ONCOMING NURSE. CALL LIGHT IN EACH, PATIENT ACROSS FROM NURSES STATION.
[2019-09-07 18:35] VITALS: BP 109/86
--- NOTE | 2019-09-07 19:35 | NUR ---
RECEIVED PT RESTING IN BED, NO ACUTE DISTRESS NOTED. PT AOX2 (PERSON/PLACE) ABLE TO REORIENT. DENIES DOHERTY/DIZZINESS. MEDSURG PT, DENIES CP. PULSES PALPABLE BILAT, DENIES NUMBNESS/TINGLING IN FEET. 1-2+ PITTING EDEMA IN FEET R>L, SCDS ON. RESP EVEN AND UNLABORED ON RA, DENIES SOB. ABD SOFT ROUND, DENIES N/V/D. PT NEW HD PATENT WITH RIJ TUNNELED PERM-A-CATH INSERTED (09/06), LAST HD= 09/07 WITHI NO OUTPUT. DSG CSI. PT ON AIR MATTRESS, GENERALIZED WEAKNESS. WORKING WITH PT. PT WITH OPTIFORM TO SACRAL AREA, CDI. TURN 2QH PRN. DENIES PAIN AT THIS TIME. IV SITE SALINE LOCKED AT THE RFA NO REDNESS, SWELLING OR PAIN NOTED. CALL LIGHT WITHIN REACH, BED IN LOWEST POSITION, WILL CONTINUE TO MONITOR.
[2019-09-07 20:37] VITALS: BP 139/62
--- NOTE | 2019-09-08 05:15 | NUR ---
PT RESTED IN INTERALS DURING SHIFT, NO ACUTE CHANGES OCCURRING OVERNIGHT. PT REMAINS CALM AND COOPERATIVE WITH CARE, PT ABLE TO SPEAK CLEARLY IN [place] (SHORT PHRASES) ABLE TO MAKE NEEDS KNOWN. PT RIJ TUNNELED CATH REMAIN INTACT, FREE OF SWELLING. DSG CDI. IV SITE TO THE LT HAND PATENT, NO REDNESS, SWELLING OR PAIN NOTED. ALL COMFORT AND SAFETY MEASURES PROVIDED FOR, CALL LIGHT WITHIN REACH, BED IN LOWEST POSITION, WILL CONTINUE TO MONITOR.
[2019-09-08 06:14] VITALS: BP 135/72
--- NOTE | 2019-09-08 07:45 | NUR ---
RECEIVED PATIENT RESTING IN BED, NO ACUTE DISTRESS NOTED. PATIENT DENIES SOB, ON ROOM AIR. PATIENT A/OX2, DENIES DOHERTY, PATIENT ABLE TO VERBALIZE NEEDS. EDEMA NOTED TO BLE, ELVATED BLE WITH PILLOW. GENERALIZED WEAKNESS NOTED, PATIENT ABLE TO ASSIST WITH TURNING. AIR MATRESS IN [;KYLE. IV TO RFA, CDI& PATENT,NO S/S OF INFILTRATION. CALL LIGHT WITHIN REACH, BED IN LOW POSITION. WILL CONTINUE TO MONITOR FOR CHANGES.
--- NOTE | 2019-09-08 07:46 | NUR ---
ALL CARE ENDORSED TO DAYSHIFT NURSE, ALL QUESTIONS AND CONCERNS ADDRESSED, ALL COMFORT AND SAFETY MEASURES PROVIDED FOR, CALL LIGHT WITHIN REACH, BED IN LOWEST POSITION.
[2019-09-08 09:21] VITALS: BP 153/64
--- NOTE | 2019-09-08 12:24 | NUR ---
MEAT AND POULTRY INSPECTOR RONALD AWARE PATIENT WBC WERE 14.1 PREVIOUS WERE 5.6, MEAT AND POULTRY INSPECTOR RONALD STATED OKAY FOR TRANSFER TO [facility].
[2019-09-08 12:38] VITALS: BP 153/64
--- NOTE | 2019-09-08 13:00 | NUR ---
PATIENT WAS TO D/C TO [facility], REPORT WAS GIVEN TO NURSE MAXIMILIAN. PATIENT RECEIVED COPY OF DISCHARGE, PATIENT UNDERSTAND AND AGREES WITH D/C. PATIENT FAMILY WAS INFORMED OF TRANSFER. PATIENT WAS UNABLE TO SIGN D/C PAPER WORK, TELLY REY COSIGNED. ARMBANDS REMOVED. IV TO RFA REMOVED, CATH INTACT. PATIENT TAKEN DOWN VIA GURNEY.
== END 2019-09-08 13:23 | DRG 682 ==
LOC: ED 22:20 → DU 08-31 01:04 → MU 08-31 01:04 → DU 08-31 02:38 → MU 09-03 14:00
PROVIDERS: Emergency Medicine; General Practice; Surgery; ADMIT Family Medicine
PROC: 5A1D70Z Performance of Urinary Filtration, Intermittent, Less than 6 Hours Per Day (ICD-10-PCS; 2019-09-01)
PROC: 05HM33Z Insertion of Infusion Device into Right Internal Jugular Vein, Percutaneous Approach (ICD-10-PCS; principal; 2019-09-01 11:30)
PROC: 5A1D70Z Performance of Urinary Filtration, Intermittent, Less than 6 Hours Per Day (ICD-10-PCS; 2019-09-02)
PROC: 5A1D70Z Performance of Urinary Filtration, Intermittent, Less than 6 Hours Per Day (ICD-10-PCS; 2019-09-04)
PROC: 5A1D70Z Performance of Urinary Filtration, Intermittent, Less than 6 Hours Per Day (ICD-10-PCS; 2019-09-05)
PROC: 05PY33Z Removal of Infusion Device from Upper Vein, Percutaneous Approach (ICD-10-PCS; 2019-09-06)
PROC: 05HM33Z Insertion of Infusion Device into Right Internal Jugular Vein, Percutaneous Approach (ICD-10-PCS; 2019-09-06)
PROC: 5A1D70Z Performance of Urinary Filtration, Intermittent, Less than 6 Hours Per Day (ICD-10-PCS; 2019-09-07)
DX: N17.0 Acute kidney failure with tubular necrosis (principal); I21.A1 Myocardial infarction type 2; G93.41 Metabolic encephalopathy; I50.33 Acute on chronic diastolic (congestive) heart failure; E43 Unspecified severe protein-calorie malnutrition; Z68.1 Body mass index [BMI] 19.9 or less, adult; E87.0 Hyperosmolality and hypernatremia; I13.2 Hypertensive heart and chronic kidney disease with heart failure and with stage 5 chronic kidney disease, or end stage renal disease; N18.6 End stage renal disease; N18.5 Chronic kidney disease, stage 5; E87.5 Hyperkalemia; E83.51 Hypocalcemia; D63.1 Anemia in chronic kidney disease; J44.9 Chronic obstructive pulmonary disease, unspecified; E83.39 Other disorders of phosphorus metabolism; E03.9 Hypothyroidism, unspecified; K21.9 Gastro-esophageal reflux disease without esophagitis; Z90.5 Acquired absence of kidney
CPT/HCPCS: 82962; 83880; 86580; 97110-GP; 97116-GP; 97530-GP; A4301; G0378; G0480; J0360; J0610; J0690; J0885-EC; J1644; J1815; J1940; J2001; J2704; J3010; J3475; J3490; J7030; J7120; J7613; J7620; Q0092

== ENCOUNTER 2019-12-08 22:04 | Inpatient (IN) | payer OTHER, MEDICAID ==
[~2019-12-08] VITALS: Ht 144.8 cm; Wt 45.4 kg
[~2019-12-08 22:04] MED LIST changes: +PROCRIT10000 UNIT IJ
[2019-12-08 22:11] VITALS: Ht 144.8 cm; Wt 45.4 kg
[2019-12-08 23:21] LABS: PLATELET COUNT 227 x10^3mcL (130-400)
[2019-12-08 23:25] LABS: BASOPHIL % 0 % (0-2); RED CELL DISTRIBUTION WIDTH 16.1 % (11.5-14.5)
[2019-12-08 23:34] LABS: ALBUMIN 3.5 g/dL (3.4-5.0); ALKALINE PHOSPHATASE 143 U/L (46-116); ALT/SGPT 32 U/L (14-59); AST/SGOT 31 U/L (15-37); BILIRUBIN TOTAL 0.3 mg/dL (0.20-1.00); CALCIUM 7.5 mg/dL (8.5-10.1); CARBON DIOXIDE 23.3 mmol/L (21-32); CHLORIDE SERUM 86 mmol/L (98-107); GLUCOSE SERUM 121 mg/dL (74-106); POTASSIUM SERUM 4.5 mmol/L (3.5-5.1); TOTAL PROTEIN, SERUM 7.6 g/dL (6.4-8.2)
[2019-12-08 23:36] LABS: CREATININE SERUM 7.9 mg/dL (0.6-1.0); SODIUM SERUM 124 mmol/L (136-145)
[2019-12-08] MEDS ORDERED: NORVASC10 MG PO (23:57)
[2019-12-09] VITALS (7 sets, daily range): BP systolic 117–139; BP diastolic 47–78
[2019-12-09 03:19] LABS: T3 TOTAL 0.71 ng/mL
[2019-12-09 03:23] LABS: FREE THYROXINE INDEX 2.7 ug/dL (1.4-4.5); T4(THYROXINE) 8.6 ug/dL (4.7-13.3)
[2019-12-09 03:54] LABS: CHOLESTEROL/HDL RATIO 1.7
[2019-12-09 04:00] LABS: FREE T4 1.11 ng/dL (0.76-1.46)
[2019-12-09 08:28] LABS: BASOPHIL % 0.1 % (0-2); PLATELET COUNT 207 x10^3mcL (130-400)
[2019-12-09 08:31] LABS: CALCIUM 7.3 mg/dL (8.5-10.1); CARBON DIOXIDE 21.4 mmol/L (21-32); CHLORIDE SERUM 86 mmol/L (98-107); GLUCOSE SERUM 96 mg/dL (74-106); MAGNESIUM 2.5 mg/dL (1.8-2.4); PHOSPHOROUS 7.8 mg/dL (2.5-4.9); POTASSIUM SERUM 4.7 mmol/L (3.5-5.1)
[2019-12-09 08:42] LABS: CREATININE SERUM 7.8 mg/dL (0.6-1.0); SODIUM SERUM 123 mmol/L (136-145)
[2019-12-09 09:46] LABS: RED CELL DISTRIBUTION WIDTH 16.4 % (11.5-14.5)
[2019-12-10 05:32] VITALS: BP 126/56
[2019-12-10 06:46] LABS: PLATELET COUNT 205 x10^3mcL (130-400)
[2019-12-10 06:51] LABS: BASOPHIL % 0 % (0-2); RED CELL DISTRIBUTION WIDTH 16.2 % (11.5-14.5)
[2019-12-10 07:07] LABS: CALCIUM 7.1 mg/dL (8.5-10.1); CARBON DIOXIDE 19.6 mmol/L (21-32); CHLORIDE SERUM 83 mmol/L (98-107); GLUCOSE SERUM 173 mg/dL (74-106); MAGNESIUM 2.5 mg/dL (1.8-2.4); PHOSPHOROUS 8.9 mg/dL (2.5-4.9); POTASSIUM SERUM 5.4 mmol/L (3.5-5.1)
[2019-12-10 08:23] LABS: CREATININE SERUM 8.2 mg/dL (0.6-1.0); SODIUM SERUM 117 mmol/L (136-145)
[2019-12-10 09:36] VITALS: BP 118/52
[2019-12-10 12:21] LABS: rbc morphology (normal/abnorm) ABNORMAL (NORMAL)
[2019-12-10 13:05] VITALS: BP 185/63
[2019-12-10 17:02] LABS: CALCIUM 7.6 mg/dL (8.5-10.1); CARBON DIOXIDE 28.7 mmol/L (21-32); CHLORIDE SERUM 97 mmol/L (98-107); CREATININE SERUM 3.6 mg/dL (0.6-1.0); GLUCOSE SERUM 114 mg/dL (74-106); SODIUM SERUM 134 mmol/L (136-145)
[2019-12-10 18:20] VITALS: BP 182/79
[2019-12-10 22:36] VITALS: BP 116/47
[2019-12-11 05:09] VITALS: BP 144/55
[2019-12-11 06:17] LABS: PLATELET COUNT 192 x10^3mcL (130-400)
[2019-12-11 06:34] LABS: CALCIUM 7.1 mg/dL (8.5-10.1); CARBON DIOXIDE 27.3 mmol/L (21-32); CHLORIDE SERUM 95 mmol/L (98-107); GLUCOSE SERUM 137 mg/dL (74-106); POTASSIUM SERUM 4.3 mmol/L (3.5-5.1); SODIUM SERUM 131 mmol/L (136-145)
[2019-12-11 06:37] LABS: BASOPHIL % 0 % (0-2); RED CELL DISTRIBUTION WIDTH 16.4 % (11.5-14.5)
[2019-12-11 07:44] LABS: CREATININE SERUM 4.2 mg/dL (0.6-1.0)
[2019-12-11 08:20] VITALS: BP 108/72
[2019-12-11 13:04] VITALS: BP 142/58
[2019-12-11 18:00] VITALS: BP 155/61
[2019-12-11 20:45] VITALS: BP 95/53
[2019-12-11 21:37] VITALS: BP 142/58
[2019-12-12 05:13] VITALS: BP 137/70
[2019-12-12 08:33] VITALS: BP 156/68
[2019-12-12 09:39] LABS: CALCIUM 6.7 mg/dL (8.5-10.1); CARBON DIOXIDE 24.4 mmol/L (21-32); CHLORIDE SERUM 94 mmol/L (98-107); GLUCOSE SERUM 171 mg/dL (74-106); POTASSIUM SERUM 4.2 mmol/L (3.5-5.1); SODIUM SERUM 131 mmol/L (136-145)
[2019-12-12 09:56] LABS: CREATININE SERUM 5.3 mg/dL (0.6-1.0)
[2019-12-12 12:08] VITALS: BP 167/72
[2019-12-12 16:27] VITALS: BP 167/73
[2019-12-12 17:11] VITALS: BP 146/60
[2019-12-12 20:45] VITALS: BP 146/63
[2019-12-13 05:45] VITALS: BP 172/66
[2019-12-13 06:44] VITALS: BP 161/60
[2019-12-13 07:05] LABS: BASOPHIL % 0.5 % (0-2); PLATELET COUNT 208 x10^3mcL (130-400)
[2019-12-13 07:15] LABS: RED CELL DISTRIBUTION WIDTH 16.4 % (11.5-14.5)
[2019-12-13 07:27] LABS: CALCIUM 7.5 mg/dL (8.5-10.1); CARBON DIOXIDE 29.1 mmol/L (21-32); CHLORIDE SERUM 96 mmol/L (98-107); CREATININE SERUM 3.8 mg/dL (0.6-1.0); GLUCOSE SERUM 90 mg/dL (74-106); POTASSIUM SERUM 3.8 mmol/L (3.5-5.1); SODIUM SERUM 133 mmol/L (136-145)
[2019-12-13 09:19] VITALS: BP 178/76
[2019-12-13] MEDS ORDERED: SOL40I IV (10:17)
[2019-12-13] MEDS ORDERED: ZITHROMAX TRI-500 MG PO (10:18)
[2019-12-13] MEDS ORDERED: PREDNISONE5 MG PO (12:13)
[2019-12-13] MEDS ORDERED: PREDNISONE10 MG PO (12:13)
[2019-12-13] MEDS ORDERED: PRE20 PO (12:13)
[2019-12-13 13:18] VITALS: BP 146/66
[2019-12-13 13:25] VITALS: BP 146/66
== END 2019-12-13 15:56 | DRG 189 ==
LOC: ED 22:04 → DU 12-09 00:03
PROVIDERS: Emergency Medicine; ADMIT Internal Medicine
PROC: 5A1D70Z Performance of Urinary Filtration, Intermittent, Less than 6 Hours Per Day (ICD-10-PCS; principal; 2019-12-10)
PROC: 5A1D70Z Performance of Urinary Filtration, Intermittent, Less than 6 Hours Per Day (ICD-10-PCS; 2019-12-12)
DX: J96.01 Acute respiratory failure with hypoxia (principal); N18.6 End stage renal disease; J44.1 Chronic obstructive pulmonary disease with (acute) exacerbation; I13.2 Hypertensive heart and chronic kidney disease with heart failure and with stage 5 chronic kidney disease, or end stage renal disease; I50.32 Chronic diastolic (congestive) heart failure; E87.1 Hypo-osmolality and hyponatremia; D63.1 Anemia in chronic kidney disease; K21.9 Gastro-esophageal reflux disease without esophagitis; E03.9 Hypothyroidism, unspecified; Z99.2 Dependence on renal dialysis; Z90.5 Acquired absence of kidney; Z87.891 Personal history of nicotine dependence; Z68.21 Body mass index [BMI] 21.0-21.9, adult
CPT/HCPCS: 36600; 83880; 84439; 94150; 97116-GP; 97530-GP; G0378; J0456; J0696; J0885-EC; J1644; J2920; J7030; J7050; J7613; J7626; J7644; Q0092